=== PATIENT | male | born 1950 | race Hispanic/Latino ===

== ENCOUNTER 2019-02-05 03:58 | Inpatient (IN) | payer MEDICARE ==
[2019-02-05] MEDS: Sodium Chloride 0.9% 1,000 ML IV SCH ×2 (04:40→18:20)
--- NOTE | 2019-02-05 05:13 | ED PDOC ---
Arrival/HPI - General Chief Complaint: Weakness/Neurological Deficit Time Seen by Provider: 02/05/19 04:04 Historian: Patient - History of Present Illness Narrative History of Present Illness (Text): 02/05/19 05:08 A 68 year old male, whose past medical history includes diabetes (compliant with medications), presents to the emergency department complaining of possible stroke. Patient reports noticing right facial droop, slurred speech, right arm weakness, and right leg weakness yesterday morning, to which he did not seek immediate medical attention. States this morning while he was trying to ambulate to the bathroom, and resulted in falling to the floor due to the right leg weakness. Patient denies any LOC, head trauma, vision changes, chest pain, shortness of breath, palpitations, abdominal pain, nausea, vomiting, diarrhea, dysuria, dizziness, extremity numbness, or any other complaints at this time. Denies any history of cardiac issues, smoking, hypertension or hyperlipidemia. PMD: Dr. Rollins Past Medical History - Provider Review Nursing Documentation Reviewed: Yes Primary Care Provider: Camila Roy R - Infectious Disease Hx of Infectious Diseases: None - Cardiac Hx Cardiac Disorders: No - Pulmonary Hx Respiratory Disorders: No - Neurological Hx Neurological Disorder: No - HEENT Hx HEENT Disorder: No - Renal Hx Renal Disorder: No - Endocrine/Metabolic Hx Endocrine Disorders: Yes Hx Diabetes Mellitus Type 2: Yes - Hematological/Oncological Hx Blood Disorders: No - Integumentary Hx Dermatological Disorder: No - Musculoskeletal/Rheumatological Hx Musculoskeletal Disorders: Yes Hx Osteoarthritis: Yes - Gastrointestinal Hx Gastrointestinal Disorders: No - Genitourinary/Gynecological Hx Genitourinary Disorders: No - Psychiatric Hx Psychophysiologic Disorder: No Hx Substance Use: No - Surgical History Other/Comment: lt hand sx - Anesthesia Hx Anesthesia: Yes Hx Anesthesia Reactions: No Hx Malignant Hyperthermia: No Family/Social History - Physician Review Nursing Documentation Reviewed: Yes Family/Social History: No Known Family HX Smoking Status: Never Smoked Hx Alcohol Use: No Hx Substance Use: No Allergies/Home Meds Allergies/Adverse Reactions: Allergies No Known Allergies Allergy (Verified 02/05/19 04:06) Home Medications: Home Meds Medication Instructions Recorded Confirmed Insulin Detemir [Levemir] 45 unit SC HS 02/05/19 02/05/19 MetFORMIN [glucoPHAGE] 1,000 mg PO BID 02/05/19 02/05/19 Review of Systems - Physician Review All systems were reviewed & negative as marked: Yes - Review of Systems Constitutional: absent: Other (no head trauma) Eyes: absent: Vision Changes Respiratory: absent: SOB Cardiovascular: absent: Chest Pain, Palpitations Gastrointestinal: absent: Abdominal Pain, Diarrhea, Nausea, Vomiting Neurological: Gait Changes (right leg weakness), Speech Changes (slurred speech), Facial Droop (right-side), Other (right arm weakness; no LOC and no extremity numbness). absent: Dizziness Physical Exam Vital Signs Reviewed: Yes Vital Signs Temp Pulse Resp BP Pulse Ox 02/05/19 05:00 111 H 18 190/102 H 96 02/05/19 04:42 110 H 16 195/85 H 94 L 02/05/19 04:15 98.0 F 116 H 16 197/110 H 94 L Temperature: Afebrile Blood Pressure: Hypertensive Pulse: Regular Respiratory Rate: Normal Appearance: Positive for: Well-Appearing, Non-Toxic, Comfortable Pain Distress: None Mental Status: Positive for: Alert and Oriented X 3 Finger Stick Blood Glucose: 221 - Systems Exam Head: Present: Atraumatic, Normocephalic Pupils: Present: PERRL Extroacular Muscles: Present: EOMI Conjunctiva: Present: Normal Mouth: Present: Moist Mucous Membranes, Other (no tongue deviation) Neck: Present: Normal Range of Motion Respiratory/Chest: Present: Clear to Auscultation, Good Air Exchange. No: Respiratory Distress, Accessory Muscle Use Cardiovascular: Present: Regular Rate and Rhythm, Normal S1, S2. No: Murmurs Abdomen: No: Tenderness, Distention, Peritoneal Signs Back: Present: Normal Inspection Upper Extremity: Present: Normal Inspection. No: Cyanosis, Edema Lower Extremity: Present: Normal Inspection. No: Edema Neurological: Present: GCS=15, CN II-XII Intact, Other (right facial droop, specifically to corner of mouth). No: Speech Normal (slurred speech) Skin: Present: Warm, Dry, Normal Color. No: Rashes Psychiatric: Present: Alert, Oriented x 3, Normal Insight, Normal Concentration Medical Decision Making ED Course and Treatment: 02/05/19 05:21 Impression: 68 year old male with possible stroke. Plan: -- EKG -- Head CT -- Chest X-ray -- IV Fluids -- Reassess and disposition Prior Visits: Notes and results from previous visits were reviewed. Progress Notes: Patient seen and examined. Stroke alert called (not code stroke as patient is almost 24 hours from symptom onset). Labs drawn and sent. Patient to CT. 02/05/2019 04:[address] IMPRESSION: 1. Age-appropriate cerebellar and cerebral atrophy. 2. Mild chronic microvascular disease. 3. No evidence of acute intracranial pathology. Dictator: Micky Angulo MD Case discussed with Dr. George store loss prevention manager for neurology. Advised ASA, MRI brain, permissive hypertension to around 160 systolic. Agrees that patient is out of window for acute intervention. 160mg ASA given WA (patient took two baby ASA at home prior to arrival). Case discussed with Dr. Grant who accepts patient to her service. - Critical Care Critical Care Minutes: 30 minutes - RAD Interpretation Narrative RAD Interpretations (Text): CXR: no acute disease noted Radiology Orders: 02/05/19 04:14 HEAD W/O CONTRAST [CT] Stat CHEST ONE VIEW [RAD] Stat Surface Lay Out Technician: ED Physician - EKG Interpretation EKG Interpretation (Text): 02/05/19 05:44 Sinus tachycardia, rate 104, normal axis, normal intervals, no ST elevation - Medication Orders Current Medication Orders: Sodium Chloride (Sodium Chloride 0.9%) 1,000 mls @ 100 mls/hr IV .Q10H SOFIA Last Admin: 02/05/19 04:40 Dose: 100 mls/hr eMAR Start Stop Document 02/05/19 04:40 KV (Rec: 02/05/19 04:51 [id number] [id number]) Intravenous Solution Start Date 02/05/19 Start Time 04:40 NIHSS Stroke Scale 3 - Date/Time Evaluation Performed Date Performed: 02/05/19 Time Performed: 04:05 When Was NIHSS Performed: Code Stroke (stroke alert) - How Severe is the Stroke Level of Consciousness: 0=Alert LOC to Questions: 0=Both comments correct LOC to commands: 0=Obeys both correctly Best Gaze: 0=Normal Visual: 0=No visual loss Facial: 1=Minor asymmetry Motor Arm - Left: 0=No drift Motor Arm - Right: 2=Falls before 10 sec Motor Leg - Left: 0=No drift Motor Leg - Right: 2=Falls before 5 sec Limb Ataxia: 0=Absent Sensory: 0=Normal Best Language: 0=No aphasia Dysarthia: 1=Mild to moderate slurring Extinction & Inattention (Neglect): 0=Normal, no object Score: 6 - Scribe Statement The provider has reviewed the documentation as recorded by the Merlyn Garner Provider Scribe Attestation: All medical record entries made by the Scribe were at my direction and personally dictated by me. I have reviewed the chart and agree that the record accurately reflects my personal performance of the history, physical exam, medical decision making, and the department course for this patient. I have also personally directed, reviewed, and agree with the discharge instructions and disposition. Disposition/Present on Arrival - Present on Arrival Any Indicators Present on Arrival: No History of DVT/PE: No History of Uncontrolled Diabetes: No Urinary Catheter: No History of Decub. Ulcer: No History Surgical Site Infection Following: None - Disposition Have Diagnosis and Disposition been Completed?: Yes Diagnosis: CVA (cerebral vascular accident) Disposition: HOSPITALIZED Disposition Time: 05:43 Patient Problems: Current Active Problems Problem Status Onset CVA (cerebral vascular accident) Acute Condition: FAIR
[2019-02-05 05:43] LABS: BASO # 0.03 K/mm3 (0.0-2.0); BASO % 0.2 % (0.0-3.0); EOS # 0.1 (0.0-0.7); EOS % 0.6 % (1.5-5.0); HEMOGLOBIN 13.4 g/dL (14.0-18.0); LYMPH # 2.1 (1.2-3.4); LYMPH % 16.7 % (22.0-35.0); MEAN CELL VOLUME 86.1 fl (80.0-105.0); MEAN CORPUSCULAR HEMOGLOBIN 29.6 pg (25.0-35.0); MEAN CORPUSCULAR HGB CONC 34.4 g/dl (31.0-37.0); MEAN PLATELET VOLUME 9.9 fl (7.0-11.0); MONO # 0.7 (0.1-0.6); MONO % 5.3 % (1.0-6.0); RBC 4.53 10^6/uL (3.5-6.1); RED CELL DISTRIBUTION WIDTH 13.7 % (11.5-14.5); WHITE BLOOD COUNT 12.5 10^3/uL (4.5-11.0)
[2019-02-05] MEDS ORDERED: Labetalol 5 mg/ml Inj 20ML IV STA (05:44)
[2019-02-05 05:48] LABS: INR 1.02; PARTIAL THROMBOPLASTIN TIME 56.8 Seconds (26.9-38.3); PROTHROMBIN TIME 11.5 SECONDS (9.4-12.5)
[2019-02-05 05:52] LABS: ALB/GLOB RATIO 1.3 (1.1-1.8); ALBUMIN 4.2 g/dL (3.0-4.8); ALT/SGPT 13 U/L (7-56); AST/SGOT 22 U/L (17-59); BLOOD UREA NITROGEN 15 mg/dL (7-21); CALCIUM 9.5 mg/dL (8.4-10.5); GFR NON-AFRICAN AMERICAN > 60
[2019-02-05 06:03] LABS: TROPONIN I 0.04 ng/mL
--- NOTE | 2019-02-05 07:55 | CT ---
Date of service: 02/05/2019 PROCEDURE: CT HEAD WITHOUT CONTRAST. HISTORY: cva COMPARISON: None available. TECHNIQUE: Axial computed tomography images were obtained through the head/brain without intravenous contrast. Radiation dose: Total exam DLP = 888.7 mGy-cm. This CT exam was performed using one or more of the following dose reduction techniques: Automated exposure control, adjustment of the mA and/or kV according to patient size, and/or use of iterative reconstruction technique. FINDINGS: HEMORRHAGE: No intracranial hemorrhage. BRAIN: No mass effect or edema. No atrophy or chronic microvascular ischemic changes. VENTRICLES: Unremarkable. No hydrocephalus. CALVARIUM: Unremarkable. PARANASAL SINUSES: Unremarkable as visualized. No significant inflammatory changes. MASTOID AIR CELLS: Unremarkable as visualized. No inflammatory changes. OTHER FINDINGS: The report concurs with the preliminary [facility] report IMPRESSION: No acute intracranial findings
--- NOTE | 2019-02-05 08:39 | RAD ---
Date of service: 02/05/2019 PROCEDURE: CHEST RADIOGRAPH, 1 VIEW HISTORY: Code Stroke COMPARISON: None available. FINDINGS: LUNGS: Clear. PLEURA: No pneumothorax or pleural fluid seen. CARDIOVASCULAR: No aortic atherosclerotic calcification present. Normal. OSSEOUS STRUCTURES: No significant abnormalities. VISUALIZED UPPER ABDOMEN: Normal. OTHER FINDINGS: None. IMPRESSION: No active disease.
--- NOTE | 2019-02-05 10:46 | CARD ---
APPROVED REPORT Date of service: 02/05/2019 EKG Measurement Heart [id number] <Conclusion> Sinus tachycardia Otherwise normal ECG
[2019-02-05] MEDS ORDERED: Insulin Lispro (humaLOG) MEDIUM Coverage SC SCH (11:30)
[2019-02-05 13:36] VITALS: BMI 28.3
[2019-02-05] MEDS ORDERED: Pneumococcal 23-Valent Vaccine IM ONE (13:37)
--- NOTE | 2019-02-05 15:25 | CP.PCM.CON ---
History of Present Illness - History of Present Illness History of Present Illness: Neurology consult dictated Mr. Hernandez is a gentleman who appears to have had a Left MCA division 1 stroke, not TPA candidate, now improving. Tpa was not given as he was out of the window. He is pending MRI brain, and is now on aspirin, with permissive hypertension. A/P: 1. MRI Brain without dereck 2. ECHO 3. aspirin and plavix 4. PT ST OT 5. Lipid profile 6. CTA head and neck 7. Neuro checks q shift, Thank you Dr. huffman Past Patient History - Infectious Disease Hx of Infectious Diseases: None - Past Social History Smoking Status: Never Smoked - CARDIAC Hx Cardiac Disorders: No - PULMONARY Hx Respiratory Disorders: No - NEUROLOGICAL Hx Neurological Disorder: Yes Other/Comment: started saturday02/03/19 c/o weakness, slurred speech, r facial droop, r arm and r leg weakness, fell in bathroom due to right side weakness - HEENT Hx HEENT Problems: Yes (bifocals) Hx Cataracts: Yes (r eye cataract dx 06/2018 no sx yet) - RENAL Hx Chronic Kidney Disease: No - ENDOCRINE/METABOLIC Hx Diabetes Mellitus Type 2: Yes - HEMATOLOGICAL/ONCOLOGICAL Hx Blood Disorders: Yes Hx Cancer: Yes (skin ca basal cell removed from nose) - INTEGUMENTARY Hx Dermatological Problems: No - MUSCULOSKELETAL/RHEUMATOLOGICAL Hx Arthritis: Yes - GASTROINTESTINAL Hx Gastrointestinal Disorders: No - GENITOURINARY/GYNECOLOGICAL Hx Genitourinary Disorders: No - PSYCHIATRIC Hx Substance Use: No - SURGICAL HISTORY Hx Surgeries: Yes Other/Comment: lt hand sx to correct curling of 5th finger left hand about 3 yrs ago - ANESTHESIA Hx Anesthesia: Yes Hx Anesthesia Reactions: No Hx Malignant Hyperthermia: No Meds Allergies/Adverse Reactions: Allergies Allergy/AdvReac Type Severity Reaction Status Date / Time No Known Allergies Allergy Verified 02/05/19 04:06 - Medications Medications: Current Medications Amlodipine Besylate (Norvasc) 10 mg PO DAILY SOFIA Last Admin: 02/05/19 14:02 Dose: 10 mg Sodium Chloride (Sodium Chloride 0.9%) 1,000 mls @ 100 mls/hr IV .Q10H SOFIA Last Admin: 02/05/19 04:40 Dose: 100 mls/hr Insulin Human Lispro (Humalog Med) 0 units SC ACHS SOFIA; Protocol Last Admin: 02/05/19 13:48 Dose: Not Given Results - Vital Signs Recent Vital Signs: Last Vital Signs Temp 98.1 F 02/05/19 12:00 Pulse 93 H 02/05/19 13:15 Resp 18 02/05/19 13:15 BP 180/85 H 02/05/19 14:02 Pulse Ox 96 02/05/19 09:30 - Labs Result Diagrams: 02/05/19 04:42 02/05/19 04:42 Labs: Laboratory Results - last 24 hr 02/05/19 02/05/19 02/05/19 04:07 04:42 04:42 WBC 12.5 H RBC 4.53 Hgb 13.4 L Hct 39.0 L MCV 86.1 MCH 29.6 MCHC 34.4 RDW 13.7 Plt Count 297 MPV 9.9 Neut % (Auto) 77.2 H Lymph % (Auto) 16.7 L [place] % (Auto) 5.3 Eos % (Auto) 0.6 L Baso % (Auto) 0.2 Lymph # (Auto) 2.1 [place] # (Auto) 0.7 H Eos # (Auto) 0.1 Baso # (Auto) 0.03 Absolute Neuts (auto) 9.68 H PT 11.5 INR 1.02 APTT 56.8 H Sodium Potassium Chloride Carbon Dioxide Anion Gap BUN Creatinine Est GFR ( Amer) Est GFR (Non-Af Amer) POC Glucose (mg/dL) 221 H Random Glucose Calcium Total Bilirubin AST ALT Alkaline Phosphatase Troponin I Total Protein Albumin Globulin Albumin/Globulin Ratio 02/05/19 02/05/19 04:42 07:41 WBC RBC Hgb Hct MCV MCH MCHC RDW Plt Count MPV Neut % (Auto) Lymph % (Auto) [place] % (Auto) Eos % (Auto) Baso % (Auto) Lymph # (Auto) [place] # (Auto) Eos # (Auto) Baso # (Auto) Absolute Neuts (auto) PT INR APTT Sodium 140 Potassium 3.6 Chloride 104 Carbon Dioxide 25 Anion Gap 15 BUN 15 Creatinine 0.6 L Est GFR ( Amer) > 60 Est GFR (Non-Af Amer) > 60 POC Glucose (mg/dL) 252 H Random Glucose 198 H Calcium 9.5 Total Bilirubin 0.6 AST 22 ALT 13 Alkaline Phosphatase 90 Troponin I 0.04 Total Protein 7.5 Albumin 4.2 Globulin 3.3 Albumin/Globulin Ratio 1.3
--- NOTE | 2019-02-05 15:50 | CP.PCM.HP ---
History of Present Illness - History of Present Illness History of Present Illness: This is a 68 year old male with history of hypertension, diabetes, hyperlipidemia and osteoarthritis who presented to the Emergency Room with right sided weakness, slurred speech and facial droop. Patient apparently had had the symptoms for about a day prior to coming to the Emergency Room. Today, the patient is feeling better with some improvement in the weakness. His speech is slurred. He denies chest pain, shortness of breath, nausea, vomiting and diaphoresis. Present on Admission - Present on Admission Any Indicators Present on Admission: No History of DVT/PE: No History of Uncontrolled Diabetes: No Urinary Catheter: No Decubitus Ulcer Present: No Review of Systems - Constitutional Constitutional: absent: Chills, Fever - Cardiovascular Cardiovascular: absent: Chest Pain, Diaphoresis, Dyspnea - Respiratory Respiratory: absent: Cough, Dyspnea, Hemoptysis - Gastrointestinal Gastrointestinal: absent: Abdominal Pain, Nausea, Vomiting - Neurological Neurological: As Per HPI Past Patient History - Infectious Disease Hx of Infectious Diseases: None - Past Social History Smoking Status: Never Smoked - CARDIAC Hx Cardiac Disorders: Yes Hx Hypercholesterolemia: Yes - PULMONARY Hx Respiratory Disorders: No - NEUROLOGICAL Hx Neurological Disorder: Yes Other/Comment: started saturday02/03/19 c/o weakness, slurred speech, r facial droop, r arm and r leg weakness, fell in bathroom due to right side weakness - HEENT Hx HEENT Problems: Yes (bifocals) Hx Cataracts: Yes (r eye cataract dx 06/2018 no sx yet) - RENAL Hx Chronic Kidney Disease: No - ENDOCRINE/METABOLIC Hx Diabetes Mellitus Type 2: Yes - HEMATOLOGICAL/ONCOLOGICAL Hx Blood Disorders: Yes Hx Cancer: Yes (skin ca basal cell removed from nose) - INTEGUMENTARY Hx Dermatological Problems: No - MUSCULOSKELETAL/RHEUMATOLOGICAL Hx Arthritis: Yes - GASTROINTESTINAL Hx Gastrointestinal Disorders: No - GENITOURINARY/GYNECOLOGICAL Hx Genitourinary Disorders: No - PSYCHIATRIC Hx Substance Use: No - SURGICAL HISTORY Hx Surgeries: Yes Other/Comment: lt hand sx to correct curling of 5th finger left hand about 3 yrs ago - ANESTHESIA Hx Anesthesia: Yes Hx Anesthesia Reactions: No Hx Malignant Hyperthermia: No Meds Allergies/Adverse Reactions: Allergies Allergy/AdvReac Type Severity Reaction Status Date / Time No Known Allergies Allergy Verified 02/05/19 04:06 Physical Exam - Constitutional Appears: No Acute Distress - Head Exam Head Exam: ATRAUMATIC, NORMOCEPHALIC - Respiratory Exam Respiratory Exam: Clear to Auscultation Bilateral, NORMAL BREATHING PATTERN - Cardiovascular Exam Cardiovascular Exam: REGULAR RHYTHM, +S1, +S2 - GI/Abdominal Exam GI & Abdominal Exam: Normal Bowel Sounds, Soft. absent: Tenderness - Extremities Exam Extremities exam: Positive for: normal inspection - Neurological Exam Neurological exam: Alert, Oriented x3 Additional comments: slurred speech, right facial droop Results - Vital Signs Recent Vital Signs: Last Vital Signs Temp 98.1 F 02/05/19 12:00 Pulse 93 H 02/05/19 13:15 Resp 18 02/05/19 13:15 BP 180/85 H 02/05/19 14:02 Pulse Ox 96 02/05/19 09:30 - Labs Result Diagrams: 02/05/19 04:42 02/05/19 04:42 Labs: Laboratory Results - last 24 hr 02/05/19 02/05/19 02/05/19 04:07 04:42 04:42 WBC 12.5 H RBC 4.53 Hgb 13.4 L Hct 39.0 L MCV 86.1 MCH 29.6 MCHC 34.4 RDW 13.7 Plt Count 297 MPV 9.9 Neut % (Auto) 77.2 H Lymph % (Auto) 16.7 L [place] % (Auto) 5.3 Eos % (Auto) 0.6 L Baso % (Auto) 0.2 Lymph # (Auto) 2.1 [place] # (Auto) 0.7 H Eos # (Auto) 0.1 Baso # (Auto) 0.03 Absolute Neuts (auto) 9.68 H PT 11.5 INR 1.02 APTT 56.8 H Sodium Potassium Chloride Carbon Dioxide Anion Gap BUN Creatinine Est GFR ( Amer) Est GFR (Non-Af Amer) POC Glucose (mg/dL) 221 H Random Glucose Calcium Total Bilirubin AST ALT Alkaline Phosphatase Troponin I Total Protein Albumin Globulin Albumin/Globulin Ratio 02/05/19 02/05/19 04:42 07:41 WBC RBC Hgb Hct MCV MCH MCHC RDW Plt Count MPV Neut % (Auto) Lymph % (Auto) [place] % (Auto) Eos % (Auto) Baso % (Auto) Lymph # (Auto) [place] # (Auto) Eos # (Auto) Baso # (Auto) Absolute Neuts (auto) PT INR APTT Sodium 140 Potassium 3.6 Chloride 104 Carbon Dioxide 25 Anion Gap 15 BUN 15 Creatinine 0.6 L Est GFR ( Amer) > 60 Est GFR (Non-Af Amer) > 60 POC Glucose (mg/dL) 252 H Random Glucose 198 H Calcium 9.5 Total Bilirubin 0.6 AST 22 ALT 13 Alkaline Phosphatase 90 Troponin I 0.04 Total Protein 7.5 Albumin 4.2 Globulin 3.3 Albumin/Globulin Ratio 1.3 Assessment & Plan - Assessment and Plan (Free Text) Assessment: TIA r/o CVA Leukocytosis Diabetes mellitus HTN HLP Arthritis Plan: Patient presented with right facial droop, right sided weakness and slurred speech for over [address] Head negative for acute abnormalities. MRI Brain and carotid doppler are pending. Patient has passed swallowing evaluation. Will start 2g sodium, diabetic diet. Will order speech therapy for slurred speech. Cardiology and Neurology consultations will be ordered. continue Norvasc and Losartan will be given in place of Irbesartan which is not available in the hospital, for hypertension. Lipitor for hyperlipidemia. We will continue Levemir and start accuchecks with sliding scale coverage. We will also order urinalysis and culture as white count is elevated.
[2019-02-05] MEDS ORDERED: Dextrose 50% SYRINGE Inj (50 ml) IV PRN (15:52)
--- NOTE | 2019-02-05 16:49 | MRI ---
Date of service: 02/05/2019 PROCEDURE: MRI BRAIN WITHOUT CONTRAST HISTORY: stroke COMPARISON: None available. TECHNIQUE: Multiplanar, multisequence MR images of the brain were obtained without intravenous contrast enhancement. FINDINGS: HEMORRHAGE: None DWI: There is an area of restricted diffusion in the left side of the becca measuring 6 x 11 mm consistent with an acute pontine infarct. BRAIN PARENCHYMA: No mass effect or edema. No atrophy or chronic microvascular ischemic changes. VENTRICLES: Unremarkable. No hydrocephalus. CRANIUM: Unremarkable. ORBITS: Grossly unremarkable. PARANASAL SINUSES/MASTOIDS: Clear VASCULAR SYSTEM: Skull base flow voids intact. OTHER FINDINGS: Dr. George's service was called at 4:40 p.m. 02/05/2019 IMPRESSION: There is an area of restricted diffusion in the left side of the becca measuring 6 x 11 mm consistent with an acute pontine infarct.
[2019-02-05] MEDS: Insulin Reg-LOW-Coverage SC SCH ×2 (18:07→21:56)
[2019-02-05 18:57] LABS: URINE BILIRUBIN NEGATIVE (NEGATIVE); URINE BLOOD TRACE-INTACT (NEGATIVE); URINE GLUCOSE (UA) >=1000 mg/dL (NEGATIVE); URINE LEUKOCYTE ESTERASE NEGATIVE Leu/uL (NEGATIVE); URINE PROTEIN 100 mg/dL (<30 mg/dL); URINE UROBILINOGEN 0.2 E.U./dL (<1 E.U./dL)
[2019-02-05 18:59] LABS: URINE APPEARANCE CLEAR (CLEAR); URINE COLOR YELLOW (YELLOW)
[2019-02-05] MEDS: Insulin Detemir 100 units/ml Vial (Levemir) SC SCH (21:55)
--- NOTE | 2019-02-06 01:01 | CON ---
DATE: 02/05/2019 Neurology consult called by ___FRANCOISE__ emergency room physician. HISTORY OF PRESENT ILLNESS: A 68-year-old male with a past medical history that includes diabetes presented to the emergency room yesterday 04.00 a.m. in the morning after noticing right facial droop, slurred speech, right arm weakness and right leg weakness on the morning of 02/04/2019. The patient went about his day and did not think anything of these symptoms and fell sleep, when he woke up in the morning he had a fall and had worsening right leg weakness. The patient was deemed not be a tPA candidate because of a sudden onset of symptoms and he has the window. Today on examination, the patient is improving. PAST MEDICAL HISTORY: Seems to be diabetes. No hypertension. No thyroid disease. SURGICAL HISTORY: No surgeries. SOCIAL HISTORY: No tobacco. No alcohol. The patient lives alone. ALLERGIES: NO KNOWN DRUG ALLERGIES. PHYSICAL EXAMINATION NEUROLOGIC: The patient was alert and oriented x3. He had a right-sided beating nystagmus of 30 degrees. Speech is fluent. He can name and repeat. EOMI. Cranial nerves II through XII normal. Right-sided facial droop. Tongue was deviated to the right. Left arm was 5/5. Left strength was 5/5. Right arm was 4/5. He could it hold against gravity but there was right-sided drift, it fell to the bed after 10 seconds. Right leg was 4/5, it also fell to the bed after 10 seconds. Sensory decreased fine touch and pin on the right face, arm, and leg when compared to the left. Reflexes 2+ in upper limb and lower limb bilaterally. Toes were downgoing. There was no clonus. Gait was not tested, the patient refused. MEDICATIONS AT HOME: The patient is on metformin and 45 units of insulin. LABORATORY DATA: White count 12.5, hemoglobin 13.4, hematocrit 39, neutrophils 77, lymphocytes 16. Coagulation parameters were normal, PTT was 36.8. Chemistry showed sodium 140, potassium 3.6, chloride 104, bicarb 25, BUN 15, creatinine 0.6, glucose was 143, initially it was 252. AST, ALT were within normal limits. CAT scan of the head was done, which was within normal limits. Carotid ultrasound was done and results are still pending. Brain MRI was done and shows that the patient has an area of restricted effusion on the left side of the becca measuring [address] of the head and neck is pending. IMPRESSION: This is a 68-year-old male with a new stroke of approximately 16, who had an acute stroke in the left becca, which is most likely lacunar in nature. He would not be a tissue plasminogen activator candidate due to being out of the window. At this point we will approach stroke workup and start him on aspirin and Plavix. PLAN: The patient will also obtain; 1. CTA of the head and neck plain. 2. Telemetry. 3. PT, SGOT. 4. Lipid profile. 5. Echocardiogram. Thank you for this interesting consult. Annita George MD [facility]
--- NOTE | 2019-02-06 01:15 | CON ---
DATE: 02/05/2019 REASON FOR CONSULTATION AND FOLLOWUP: Cardiac evaluation, admitted with TIA type of symptoms. BRIEF CLINICAL HISTORY: This is a 68-year-old white male with past medical history significant for diabetes, hypertension, hyperlipidemia, and osteoarthritis who came to the emergency room after having right-sided weakness. The patient states that he woke up at 4 a.m. in the morning, go to the bathroom, he felt right side upper extremity and lower extremity weakness and facial droop and speech slurred and fell on the way to the bathroom, so brought here. is at the bedside. Denies any prior episode of these symptoms. Denies any chest pain. Denies any diaphoresis. Denies any shortness of breath. PAST MEDICAL HISTORY: Significant for hypertension, diabetes, hyperlipidemia, and osteoarthritis. SOCIAL HISTORY: Denies any smoking. Denies any history of alcohol abuse. CURRENT MEDICATIONS: The patient at home was taking amlodipine 10 mg daily, Avapro 300 mg daily, Actos 30 mg daily, Crestor 40 mg daily, metformin 1000 mg twice a day, insulin, and Levemir 45 units subcutaneously daily. ALLERGIES: NO KNOWN DRUG ALLERGIES. REVIEW OF SYSTEMS: As per HPI. PHYSICAL EXAMINATION: GENERAL: Height of the patient 5 feet 8 inches, weight of the patient 186 pounds, and body mass index 28.3 kg/m2. VITAL SIGNS: Temperature afebrile, heart rate 88, and blood pressure 180/85. HEENT: PERRLA. Extraocular muscles intact. NECK: Supple. No carotid bruits or thyromegaly. CHEST: Clear to auscultation. HEART: S1 and S2 regular. ABDOMEN: Soft. EXTREMITIES: Clubbing and cyanosis negative. LABORATORY DATA: Blood workup; WBC 12.5, hemoglobin 13.5, hematocrit 39, and platelet count 297. Chemistry shows sodium 140, potassium 3.6, chloride 104, carbon dioxide 27, anion gap of 15, BUN 15, and creatinine 0.6. Troponin 0.04. EKG shows normal sinus tachycardia with no acute ST-T changes noted. The patient had CT scan on arrival that shows no acute findings. IMPRESSION: The patient is a 68-year-old male with past medical history of diabetes, hypertension, hyperlipidemia, osteoarthritis, admitted with right-sided weakness, transient ishemic attack type of symptoms, cerebrovascular accident, and speech slurred. RECOMMENDATIONS: The patient still uncontrolled hypertension. We will start antihypertensive medication. If the patient is not n.p.o., we will start back on amlodipine, beta-vivek, and lisinopril. If the patient is n.p.o., we will start IV medications. We will also get lipid profile, TSH, and hemoglobin A1c. We will also get carotid Duplex with echo to assess LV function and rule out PFO. Further recommendation depending upon the hospital course. We will follow with you. Thank you Dr. Roy for providing us the opportunity in taking care of the patient, Nathaniel Hernandez. Zeinab Jett MD
[2019-02-06] MEDS: Sodium Chloride 0.9% 1,000 ML IV SCH ×3 (02:19→17:45)
[2019-02-06 06:55] LABS: BASO # 0.04 K/mm3 (0.0-2.0); BASO % 0.4 % (0.0-3.0); EOS # 0.1 (0.0-0.7); EOS % 1.4 % (1.5-5.0); HEMOGLOBIN 12.2 g/dL (14.0-18.0); LYMPH # 2.9 (1.2-3.4); LYMPH % 31.7 % (22.0-35.0); MEAN CELL VOLUME 86.5 fl (80.0-105.0); MEAN CORPUSCULAR HEMOGLOBIN 29.3 pg (25.0-35.0); MEAN CORPUSCULAR HGB CONC 33.9 g/dl (31.0-37.0); MEAN PLATELET VOLUME 9.8 fl (7.0-11.0); MONO # 0.6 (0.1-0.6); MONO % 6.7 % (1.0-6.0); RBC 4.16 10^6/uL (3.5-6.1); RED CELL DISTRIBUTION WIDTH 13.7 % (11.5-14.5); WHITE BLOOD COUNT 9.2 10^3/uL (4.5-11.0)
[2019-02-06 07:10] LABS: BLOOD UREA NITROGEN 15 mg/dL (7-21); CALCIUM 8.8 mg/dL (8.4-10.5); GFR NON-AFRICAN AMERICAN > 60; HDL CHOLESTEROL 30 mg/dL (29-60)
[2019-02-06 07:21] LABS: LDL CHOLESTEROL 162 mg/dL (0-129)
[2019-02-06] MEDS: Insulin Reg-LOW-Coverage SC SCH ×4 (08:01→22:02)
--- NOTE | 2019-02-06 08:28 | CON ---
DATE: 02/05/2019 HISTORY OF PRESENT ILLNESS: This is a 68-year-old male admitted to the hospital with right-sided weakness. Patient was TPA candidate, called to evaluate the patient. Past medical history of high blood pressure. The patient had MRI was done which showed pontine acute infarct with right-sided weakness. Swallowing eval was called and patient passed the swallowing eval. PHYSICAL EXAMINATION: HEENT: Normocephalic and atraumatic. NECK: Supple. NEUROLOGIC: Awake and oriented to self and place. Cranial nerves II through XII were tested. Pupils reactive. EOM intact. Visual saha full. No facial asymmetry. Tongue midline. Motor examination, right-sided weakness, 4/5 and slight dysarthria. Cerebellar gait was deferred. IMPRESSION: Brain infarct with right-sided weakness. PLAN: Continue present management and swallowing evaluation. Patient is on aspirin and Plavix. We will continue present management. We will follow up. Wilber Sibley MD
--- NOTE | 2019-02-06 12:06 | PN ---
DATE: 02/06/2019 REASON FOR CONSULTATION AND FOLLOWUP: Cardiac evaluation, admitted with TIA type of symptom. SUBJECTIVE: The patient denies any chest pain, shortness of breath or any palpitation. OBJECTIVE GENERAL: Not in apparent distress. Claims that improved significant power in right upper extremity. VITAL SIGNS: Temperature afebrile, heart rate 76, blood pressure 154/73. HEENT: PERRLA. Extraocular muscles intact. NECK: Supple. No carotid bruits or thyromegaly. CHEST: Clear to auscultation. HEART: S1 and S2 regular. ABDOMEN: Soft. EXTREMITIES: Clubbing and cyanosis, negative. LABORATORY DATA: Blood workup as follows: WBC 9, hemoglobin 12.2, hematocrit 36, platelet count 265. Chemistry shows sodium 141, potassium 3.6, chloride 108, carbon dioxide 27, anion gap of 9, BUN 19, creatinine 0.6. TSH 0.67, HDL 30, LDL 162, triglycerides 216, total cholesterol 266. IMPRESSION: This is a 68-year-old male with past medical history significant for diabetes, hypertension, hyperlipidemia, osteoarthritis, admitted with right upper extremity weakness. MRI of the brain shows area of restricted effusion in the left side of the becca, consideration is acute pontine infarct. RECOMMENDATION: Continue Losartan. Continue baby aspirin. Echo, rule out PFO. control of blood pressure. Further recommendation as per Neurology. We will follow with you. Thank you Dr. Roy for providing us the opportunity in taking care of your patient, Nathaniel Hernandez. Zeinab Jett MD
--- NOTE | 2019-02-06 12:33 | PN ---
DATE: 02/06/2019 SUBJECTIVE: The patient is a 68-year-old white male. He was admitted yesterday with right hemiparetic stroke. The patient was treated in the emergency room, admitted to telemetry. The patient has past history of hypertension, diabetes mellitus, and hyperlipidemia. The patient has no past surgical history, excepting the medical history. THE PATIENT HAS NO ALLERGY TO ANY DRUGS. PHYSICAL EXAMINATION: GENERAL: This morning, the patient is conscious, rationale, oriented. He is able to move all four limbs, but he complains of mild weakness on the right side. VITAL SIGNS: The patient's pulse is 76, blood pressure 158/78, respirations are 18 per minute. The patient's O2 sat is 97% on room air. HEENT: Head is normocephalic. On examination, there is no evidence of any trauma. NECK: Thyroid is not enlarged. JVP is flat. Carotid pulses are present. The patient has by ultrasound study left carotid artery disease. LUNGS: Trachea is central. Breath sounds are vesicular, no adventitious sounds. HEART: Normal sinus rhythm. S1 and S2 present. No murmurs. ABDOMEN: Soft. Liver and spleen not palpable. CENTRAL NERVOUS SYSTEM: The patient has mild right hemiparesis. The patient's speech was slurred yesterday, but is recovering at this point. The patient has had neurological evaluation and cardiological evaluation. The patient will be followed up. The patient requires evaluation for the carotid artery disease. LABORATORY DATA: The patient's chest x-ray is clear. EKG report is sinus tachycardia; otherwise, there are no changes. The patient's MRI of the brain shows evidence of lesion in the pontine area consistent with maybe a small stroke, less than 1 cm. Re-evaluation of cranial nerves are all intact at this point. The patient does not show any ophthalmoplegia. MEDICATIONS: The patient is on hydralazine 10 mg q.i.d. p.r.n. for systolic pressure greater than 160. The patient is on losartan 100 mg daily. The patient gets aspirin 81 mg daily, insulin coverage for diabetes, Lipitor 80 mg daily, amlodipine 10 mg daily, Plavix 75 mg daily. ASSESSMENT AND PLAN: The patient is on intravenous fluids, which is discontinued. The patient is able to tolerate food. We will put the patient on heart-healthy diet, 2 g sodium. His prognosis is guarded. Overall condition is improving. Case is discussed with the patient and he is quite aware of the diagnosis and treatment. Jas Roy MD [facility]
--- NOTE | 2019-02-06 13:57 | CP.PCM.APN ---
Subjective - Date & Time of Evaluation Date of Evaluation: 02/06/19 Time of Evaluation: 10:30 - Subjective Subjective: pt off floor to ECHO with bubble study Review of Systems - Constitutional Constitutional: As Per HPI Objective - Vital Signs/Intake and Output Vital Signs (last 24 hours): Temp Pulse Resp BP Pulse Ox 98.6 F 90 19 170/88 H 97 02/06/19 12:00 02/06/19 13:07 02/06/19 12:00 02/06/19 13:07 02/06/19 00:01 Intake and Output: 02/06/19 02/06/19 06:59 18:59 Intake Total 2720 Output Total 2210 Balance 510 - Medications Medications: Current Medications Amlodipine Besylate (Norvasc) 10 mg PO DAILY [facility] Last Admin: 02/06/19 10:45 Dose: 10 mg Aspirin (Ecotrin) 81 mg PO DAILY [facility] Last Admin: 02/06/19 10:46 Dose: 81 mg Atorvastatin Calcium (Lipitor) 80 mg PO DIN [facility] Last Admin: 02/05/19 18:17 Dose: 80 mg Clopidogrel Bisulfate (Plavix) 75 mg PO DAILY [facility] Last Admin: 02/06/19 10:45 Dose: 75 mg Dextrose (Dextrose 50% Inj) 0 ml IV STAT PRN; Protocol PRN Reason: Hypoglycemia Protocol Hydralazine HCl (Apresoline) 10 mg PO QID PRN PRN Reason: For SBP >160 Last Admin: 02/06/19 13:07 Dose: 10 mg Sodium Chloride (Sodium Chloride 0.9%) 1,000 mls @ 100 mls/hr IV .Q10H [facility] Last Admin: 02/06/19 02:19 Dose: 100 mls/hr Dextrose (Dextrose 5% In Water 1000 Ml) 1,000 mls @ 0 mls/hr IV .Q0M PRN; Protocol PRN Reason: Hypoglycemia Protocol Insulin Detemir (Levemir) 20 unit SC HS [facility] Last Admin: 02/05/19 21:55 Dose: 20 units Insulin Human Regular (Humulin R Low) 0 units SC ACHS [facility]; Protocol Last Admin: 02/06/19 13:10 Dose: 2 u Losartan Potassium (Cozaar) 100 mg PO DAILY [facility] Last Admin: 02/06/19 10:45 Dose: 100 mg - Labs Labs: 02/06/19 06:20 02/06/19 06:20 PT 11.5 SECONDS (9.4-12.5) 02/05/19 04:42 INR 1.02 02/05/19 04:42 APTT 56.8 Seconds (26.9-38.3) H 02/05/19 04:42 - Constitutional Appears: Non-toxic - Eye Exam Eye Exam: Normal appearance - Cardiovascular Exam Cardiovascular Exam: +S1, +S2 - GI/Abdominal Exam GI & Abdominal Exam: Soft, Normal Bowel Sounds - Neurological Exam Neurological Exam: Alert, Awake Additional comments: right sided weakness - Skin Skin Exam: Dry, Intact Assessment and Plan - Assessment and Plan (Free Text) Plan: ITS Impressions Chest X-Ray 02/05/19 04:14 IMPRESSION: No active disease. Head CT 02/05/19 04:14 IMPRESSION: No acute intracranial findings Brain MRI 02/05/19 14:14 IMPRESSION: There is an area of restricted diffusion in the left side of the becca measuring 6 x 11 mm consistent with an acute pontine infarct. A/P 68 yr old with pmh sig for DM, HTN, HLD, OA, who presented with right sided weakness and slurred speech, right facial droop over 24 rhs now admitted with further neuro eval and workup in progress. Pt with MRI showing acute pontie infarct. pt for ECHO with bubble study. Spoke to neuro and will order p.t, o.t , will follow results of neuro workup including carotid results pending. BPCI/TIC - BPCIA/TIC Educated pt/family on BPCIA/CIR/Med to Bed Programs: N/A Flyers given, including [facility] Beneficiary letter: N/A Pt/family verbalized understanding & agreed to program: N/A
--- NOTE | 2019-02-06 16:03 | CARD ---
APPROVED REPORT Date of service: 02/06/2019 EXAM: Two-dimensional and M-mode echocardiogram with Doppler and color Doppler. INDICATION TIA,PFO, BUBBLE STUDY 2D DIMENSIONS Left Atrium (2D)4.2 (1.6-4.0cm)IVSd1.3 (0.7-1.1cm) LVDd4.9 (3.9-5.9cm)PWd1.5 (0.7-1.1cm) LVDs3.6 (2.5-4.0cm)FS (%) 26.6 % LVEF (%)51.6 (>50%) M-Mode DIMENSIONS Aortic Root3.20 (2.2-3.7cm)Aortic Cusp Exc.1.60 (1.5-2.0cm) Aortic Valve AoV Peak Waigtkdi067.0cm/Bong Peak GR.10mmHgLVOT Peak Lrtxnvzn09.8cm/s LVOT VTI20.40cm Mitral Valve MV E Nbvfefbk93.9cm/sMV A Ffuyuwdt007.0cm/sE/A ratio0.9 TDI Lateral E' Peak V7.70cm/sMedial E' Peak V5.36cm/sE/Lateral E'11.4 E/Medial E'16.4 Pulmonary Valve PV Peak Twqcvcnt290.0cm/sPV Peak Grad.5mmHg Tricuspid Valve TR Peak Edlokklr750pl/sRAP UXINNBGV78usEqGZ Peak Gr.20mmHg [id number] LEFT VENTRICLE The left ventricle is normal size. There is mild concentric left ventricular hypertrophy. The left ventricular function is normal.EF-55% There is normal LV segmental wall motion. Transmitral Doppler flow pattern is Grade III-reversible restrictive diastolic dysfunction. No left ventricle thrombus noted on this study. There is no ventricular septal defect visualized. There is no left ventricular aneurysm. There is no mass noted in the left ventricle. RIGHT VENTRICLE The right ventricle is normal size. There is normal right ventricular wall thickness. The right ventricular systolic function is normal. ATRIA The left atrium is mildly dilated. The right atrium size is normal. The interatrial septum is intact with no evidence for an atrial septal defect by color flow and Bubble study. AORTIC VALVE The aortic valve is thickened but opens well. No aortic regurgitation is present. There is no aortic valvular stenosis. There is no aortic valvular vegetation. MITRAL VALVE The mitral valve is thickened but opens well. Mitral regurgitation is trace to mild. There is no mitral valve stenosis. There is no evidence of mitral valve prolapse. TRICUSPID VALVE The tricuspid valve leaflets are thickened , but open well. There is mild tricuspid regurgitation.RVSP-30 mmof Hg. There is no tricuspid valve stenosis. There is no tricuspid valve prolapse or vegetation. PULMONIC VALVE The pulmonary valve is normal in structure. There is trace pulmonic valvular regurgitation. There is no pulmonic valvular stenosis. GREAT VESSELS The aortic root is normal in size. The ascending aorta is normal in size. The pulmonary artery is normal. The IVC is normal in size and collapses >50% with inspiration. PERICARDIAL EFFUSION There is no pleural effusion. There is no pericardial effusion. <Conclusion> The left ventricle is normal size. There is mild concentric left ventricular hypertrophy. The left ventricular function is normal.EF-55% Mitral regurgitation is trace to mild. There is mild tricuspid regurgitation.RVSP-30 mmof Hg. The IVC is normal in size and collapses >50% with inspiration. There is no pericardial effusion. The interatrial septum is intact with no evidence for an atrial septal defect by color flow and Bubble study.
[2019-02-06] MEDS: Insulin Detemir 100 units/ml Vial (Levemir) SC SCH (22:06)
[2019-02-07 03:36] LABS: ALB/GLOB RATIO 1.2 (1.1-1.8); ALBUMIN 3.3 g/dL (3.0-4.8); ALT/SGPT 16 U/L (7-56); AST/SGOT 29 U/L (17-59); BLOOD UREA NITROGEN 17 mg/dL (7-21); CALCIUM 8.9 mg/dL (8.4-10.5); GFR NON-AFRICAN AMERICAN > 60
[2019-02-07 03:42] LABS: TROPONIN I 0.02 ng/mL
--- NOTE | 2019-02-07 04:09 | CP.PCM.PN ---
Subjective - Date & Time of Evaluation Date of Evaluation: 02/07/19 Time of Evaluation: 04:08 - Subjective Subjective: Patient had 11 runs of VTACH. He is asymptomatic. Pertinent medical record was reviewed. This 68 year old male was admitted for right sided weakness,slurred speech and facial droop,TIA/CVA. Has PMH of HTN,DM,HLD,OA. Objective - Vital Signs/Intake and Output Vital Signs (last 24 hours): Temp Pulse Resp BP Pulse Ox 98 F 77 20 142/79 99 02/07/19 02:05 02/07/19 02:05 02/07/19 02:05 02/07/19 02:05 02/07/19 02:05 Intake and Output: 02/06/19 02/07/19 18:59 06:59 Intake Total 1200 1074 Output Total 2140 Balance 1200 -1066 - Medications Medications: Current Medications Amlodipine Besylate (Norvasc) 10 mg PO DAILY [facility] Last Admin: 02/06/19 10:45 Dose: 10 mg Aspirin (Ecotrin) 81 mg PO DAILY [facility] Last Admin: 02/06/19 10:46 Dose: 81 mg Atorvastatin Calcium (Lipitor) 80 mg PO DIN [facility] Last Admin: 02/06/19 17:41 Dose: 80 mg Clopidogrel Bisulfate (Plavix) 75 mg PO DAILY [facility] Last Admin: 02/06/19 10:45 Dose: 75 mg Dextrose (Dextrose 50% Inj) 0 ml IV STAT PRN; Protocol PRN Reason: Hypoglycemia Protocol Hydralazine HCl (Apresoline) 10 mg PO QID PRN PRN Reason: For SBP >160 Last Admin: 02/06/19 13:07 Dose: 10 mg Dextrose (Dextrose 5% In Water 1000 Ml) 1,000 mls @ 0 mls/hr IV .Q0M PRN; Protocol PRN Reason: Hypoglycemia Protocol Insulin Detemir (Levemir) 20 unit SC HS [facility] Last Admin: 02/06/19 22:06 Dose: 20 units Insulin Human Regular (Humulin R Low) 0 units SC ACHS [facility]; Protocol Last Admin: 02/06/19 22:02 Dose: Not Given Losartan Potassium (Cozaar) 100 mg PO DAILY [facility] Last Admin: 02/06/19 10:45 Dose: 100 mg - Labs Labs: 02/06/19 06:20 02/07/19 03:05 PT 11.5 SECONDS (9.4-12.5) 02/05/19 04:42 INR 1.02 02/05/19 04:42 APTT 56.8 Seconds (26.9-38.3) H 02/05/19 04:42 - Constitutional Appears: Well, No Acute Distress - Head Exam Head Exam: ATRAUMATIC, NORMAL INSPECTION, NORMOCEPHALIC - Eye Exam Eye Exam: Normal appearance - ENT Exam ENT Exam: Normal External Ear Exam - Neck Exam Neck Exam: Normal Inspection - Respiratory Exam Respiratory Exam: NORMAL BREATHING PATTERN - Cardiovascular Exam Cardiovascular Exam: absent: JVD - GI/Abdominal Exam GI & Abdominal Exam: absent: Distended - Rectal Exam Rectal Exam: Deferred - Exam Additional comments: Deferred. - Extremities Exam Extremities Exam: Normal Inspection - Back Exam Back Exam: NORMAL INSPECTION - Neurological Exam Additional comments: Resting - Psychiatric Exam Additional comments: Resting - Skin Skin Exam: Normal Color Assessment and Plan - Assessment and Plan (Free Text) Assessment: Non sustained ventricular tachycardia. TIA/CVA HTN DM HLD OA Plan: CMP--K 3.8 Magnesium-->2.1 Phosphorous-->3.9 Troponin--->0.02 EKG--------> No acute changes.NSR. Continue present management.
--- NOTE | 2019-02-07 07:48 | CP.PCM.PN ---
Subjective - Date & Time of Evaluation Date of Evaluation: 02/07/19 Time of Evaluation: 07:25 - Subjective Subjective: Patient is seen this morning. He continues to have facial droop. Right sided weakness is improving. Objective - Vital Signs/Intake and Output Vital Signs (last 24 hours): Temp Pulse Resp BP Pulse Ox 98.4 F 77 20 134/76 96 02/07/19 06:00 02/07/19 06:00 02/07/19 06:00 02/07/19 06:00 02/07/19 06:00 Intake and Output: 02/07/19 02/07/19 06:59 18:59 Intake Total 1854 Output Total 3240 Balance -1386 - Medications Medications: Current Medications Amlodipine Besylate (Norvasc) 10 mg PO DAILY [facility] Last Admin: 02/06/19 10:45 Dose: 10 mg Aspirin (Ecotrin) 81 mg PO DAILY [facility] Last Admin: 02/06/19 10:46 Dose: 81 mg Atorvastatin Calcium (Lipitor) 80 mg PO DIN [facility] Last Admin: 02/06/19 17:41 Dose: 80 mg Clopidogrel Bisulfate (Plavix) 75 mg PO DAILY [facility] Last Admin: 02/06/19 10:45 Dose: 75 mg Dextrose (Dextrose 50% Inj) 0 ml IV STAT PRN; Protocol PRN Reason: Hypoglycemia Protocol Hydralazine HCl (Apresoline) 10 mg PO QID PRN PRN Reason: For SBP >160 Last Admin: 02/06/19 13:07 Dose: 10 mg Dextrose (Dextrose 5% In Water 1000 Ml) 1,000 mls @ 0 mls/hr IV .Q0M PRN; Protocol PRN Reason: Hypoglycemia Protocol Insulin Detemir (Levemir) 20 unit SC HS [facility] Last Admin: 02/06/19 22:06 Dose: 20 units Insulin Human Regular (Humulin R Low) 0 units SC ACHS [facility]; Protocol Last Admin: 02/06/19 22:02 Dose: Not Given Losartan Potassium (Cozaar) 100 mg PO DAILY [facility] Last Admin: 02/06/19 10:45 Dose: 100 mg - Labs Labs: 02/06/19 06:20 02/07/19 03:05 PT 11.5 SECONDS (9.4-12.5) 02/05/19 04:42 INR 1.02 02/05/19 04:42 APTT 56.8 Seconds (26.9-38.3) H 02/05/19 04:42 - Constitutional Appears: No Acute Distress - Head Exam Head Exam: ATRAUMATIC, NORMOCEPHALIC - Respiratory Exam Respiratory Exam: Clear to Ausculation Bilateral, NORMAL BREATHING PATTERN - Cardiovascular Exam Cardiovascular Exam: REGULAR RHYTHM, +S1, +S2 - GI/Abdominal Exam GI & Abdominal Exam: Soft, Normal Bowel Sounds. absent: Tenderness - Neurological Exam Neurological Exam: Alert, Awake, Oriented x3 Neuro motor strength exam: Right Upper Extremity: 4 Assessment and Plan - Assessment and Plan (Free Text) Assessment: Acute pontine infarct HTN Diabetes mellitus HLP Plan: MRI shows acute pontine infarct. Patient continues to have facial droop. Right arm weakness is improving. Right leg weakness is improved. awaiting physical therapy evaluation. continue speech therapy. awaiting reading of carotid doppler. Blood pressure controlled with norvasc and losartan. continue levemir and sliding scale insulin for diabetes.
[2019-02-07] MEDS: Insulin Reg-LOW-Coverage SC SCH ×4 (08:28→22:20)
--- NOTE | 2019-02-07 13:34 | CP.PCM.PN ---
Subjective - Date & Time of Evaluation Date of Evaluation: 02/06/19 Time of Evaluation: 11:00 - Subjective Subjective: Please note that this patient is being followed by Dr. Wilber Sibley. This was discussed at around [address] Sibley and Dr. rodriguez. Thank you DR> [email or web address] Objective - Vital Signs/Intake and Output Vital Signs (last 24 hours): Temp Pulse Resp BP Pulse Ox 98.2 F 79 20 159/73 H 96 02/07/19 12:00 02/07/19 12:00 02/07/19 12:00 02/07/19 12:00 02/07/19 06:00 Intake and Output: 02/07/19 02/07/19 06:59 18:59 Intake Total 1854 Output Total 3240 Balance -1386 - Medications Medications: Current Medications Amlodipine Besylate (Norvasc) 10 mg PO DAILY [facility] Last Admin: 02/07/19 10:45 Dose: 10 mg Aspirin (Ecotrin) 81 mg PO DAILY [facility] Last Admin: 02/07/19 10:45 Dose: 81 mg Atorvastatin Calcium (Lipitor) 80 mg PO DIN [facility] Last Admin: 02/06/19 17:41 Dose: 80 mg Clopidogrel Bisulfate (Plavix) 75 mg PO DAILY [facility] Last Admin: 02/07/19 10:45 Dose: 75 mg Dextrose (Dextrose 50% Inj) 0 ml IV STAT PRN; Protocol PRN Reason: Hypoglycemia Protocol Hydralazine HCl (Apresoline) 10 mg PO QID PRN PRN Reason: For SBP >160 Last Admin: 02/06/19 13:07 Dose: 10 mg Dextrose (Dextrose 5% In Water 1000 Ml) 1,000 mls @ 0 mls/hr IV .Q0M PRN; Protocol PRN Reason: Hypoglycemia Protocol Insulin Detemir (Levemir) 20 unit SC HS [facility] Last Admin: 02/06/19 22:06 Dose: 20 units Insulin Human Regular (Humulin R Low) 0 units SC ACHS [facility]; Protocol Last Admin: 02/07/19 13:30 Dose: 2 u Losartan Potassium (Cozaar) 100 mg PO DAILY [facility] Last Admin: 02/07/19 10:45 Dose: 100 mg - Labs Labs: 02/06/19 06:20 02/07/19 03:05 PT 11.5 SECONDS (9.4-12.5) 02/05/19 04:42 INR 1.02 02/05/19 04:42 APTT 56.8 Seconds (26.9-38.3) H 02/05/19 04:42
--- NOTE | 2019-02-07 13:46 | US ---
PROCEDURE: Bilateral carotid artery duplex ultrasound HISTORY: Carotid stenosis CVA PHYSICIAN(S): Nigel Rose MD. TECHNIQUE: Duplex sonography and color-flow Doppler were used to evaluate the carotid bifurcations and limited segments of the vertebral arteries bilaterally. FINDINGS: There is moderate focal irregular heterogeneous plaque noted at the carotid bifurcations bilaterally. The peak systolic velocity in the proximal right internal carotid artery is 71 cm/sec. This corresponds to a 20 to 39% proximal right ICA stenosis. Normal systolic velocities are noted in the proximal right external carotid artery. There is antegrade flow in the right vertebral artery. The peak systolic velocity in the proximal left internal carotid artery is 189 cm/sec. This corresponds to a 60-79 percent proximal left ICA stenosis. Mildly elevated systolic velocities are noted in the proximal left external carotid artery. There is antegrade flow in the left vertebral artery. IMPRESSION: 1. 60-79 percent proximal left ICA stenosis. 2. 20-39 percent proximal right ICA stenosis 3. Antegrade flow in both vertebral arteries
--- NOTE | 2019-02-07 15:45 | PN ---
DATE: 02/07/2019 NEUROLOGY FOLLOWUP CHIEF COMPLAINT: Right side weakness and right facial droop. SUBJECTIVE: The patient was seen and examined at bedside, still has a mild right facial droop and some slurred speech and right arm and leg weakness. Has slow finger tapping on the right compared to left from underlying CVA. The patient, on MRI, had a left pontine infarct 6 x 11 mm. He is currently on dual antiplatelet therapy and high dose statin. He had his hemoglobin A1c, it was 8.7 which is high with elevated LDL 162 and elevated triglycerides 216 and elevated total cholesterol level of 266. The patient will benefit from acute rehab and needs secondary because of diabetic, blood pressure and hypercholesterolemia control. Carotid Doppler results is currently pending, but shows some proximal left ICA stenosis 40% to 59%, but we are awaiting the result. PAST MEDICAL HISTORY: Diabetes. ALLERGIES: NO KNOWN DRUG ALLERGIES. SOCIAL HISTORY: No illicit drug use, smoking or EtOH abuse. REVIEW OF SYSTEMS: A 14-point review of systems negative except in the HPI. FAMILY HISTORY: Noncontributory. LABORATORY DATA: Sodium is 138, potassium 3.8, chloride 105, carbon dioxide 28, BUN of 17, creatinine 0.8, random glucose of 128. PHYSICAL EXAMINATION: VITAL SIGNS: Temperature 98.4, pulse rate 77, blood pressure of 134/76, respiratory rate 20, oxygen saturation 96%. GENERAL: The patient is seen up in bed, in no acute distress. HEENT: Atraumatic and normocephalic. PERRLA. Extraocular muscles intact. NECK: Supple. No JVD. No adenopathy noted. LUNGS: Clear to auscultation. No adventitious sounds. HEART: S1 and S2. Normal rate and rhythm. No murmurs, rubs, or gallops. ABDOMEN: Soft, nontender, and nondistended. Bowel sounds are present. EXTREMITIES: No clubbing. No cyanosis. Peripheral pulses are 2+ felt bilaterally. NEUROLOGIC: The patient is alert and oriented to person, place, and year. Speech is fluent without any errors. Cranial nerves II through XII are intact except for a right facial droop. Motor exam: Moves all extremities equally except for right arm 4/5 and right leg 4+/5 weakness from the CVA. Sensory Exam: Decreased light touch and pinprick up to the calves. Decrease vibration of the toes. DTRs are 2+ throughout and 1 at the ankles. Coordination; [id number] is intact and toes are upgoing but actually engaged for now. IMPRESSION: This is a 68-year-old man with history of diabetes who came in with right facial droop, slurred speech, and right side weakness, found to have an acute left pontine infarct small, measuring 6 x 11 mm which is secondary to diffuse atherosclerotic disease and uncontrolled blood pressure and diabetes. The patient had an hemoglobin A1c of 8.7 and triglycerides of 216 and total cholesterol level of 266 and LDL level of 162 indicating poorly controlled lipid profile. At this time will recommend: 1. Aspirin 81, Plavix 75, and Lipitor of 80 for stroke prevention. 2. Acute rehab for right-sided weakness from CVA. 3. Diabetic control advice, keep blood sugars between 140 to 180 and a low fat diet advised. 4. Will follow up as an outpatient. 5. Carotid Doppler results currently pending, needs to be followed up. Haseeb Sibley MD
[2019-02-07] MEDS: Insulin Detemir 100 units/ml Vial (Levemir) SC SCH (22:23)
[2019-02-08] MEDS: Insulin Reg-LOW-Coverage SC SCH ×4 (08:30→21:46)
--- NOTE | 2019-02-08 12:32 | PN ---
DATE: 02/08/2019 The patient is in [facility] in [place], room 265, bed 2. SUBJECTIVE: The patient was admitted with acute stroke. The patient is seen this morning. He is awake and alert. According to him, his physical therapy took him for a walk yesterday. His ambulation is pretty much returning to normal. His speech is somewhat slurred yet. He has arm strength which is good for 4/5 and leg strength is also 4/5. PHYSICAL EXAMINATION: VITAL SIGNS: Pulse 73, blood pressure 138/68, respirations 18, O2 saturation 96% on room air. HEENT: Head is normocephalic. There is no evidence of any abnormalities noted. NECK: Thyroid is enlarged. Carotid pulses are present. JVP is flat. There is no lymphadenopathy. His face, there is no facial deformity at this time. LUNGS: Trachea central. Breath sounds are vesicular. No adventitious sounds are heard. HEART: Normal sinus rhythm. S1 and S2 present. No murmurs. ABDOMEN: Soft. Liver and spleen not palpable. CENTRAL NERVOUS SYSTEM: The patient has minimal weakness of the right leg and right arm. Speech is somewhat slurred. All cranial nerves are intact from II through XII. The patient's sense of smell and touch is good. The patient's hearing is good. LABORATORY DATA: Evaluation of test. The patient had MRI. It shows evidence of lesion in the pontine area on the left side, which might be acute small infarct. The CAT scan of the head does not reveal any pathology. Chest x-ray is within normal range. Echocardiogram shows evidence of concentric hypertrophy of the left ventricle. No mitral valve and aortic valve deformities noted. The patient's carotid ultrasound shows evidence of 70% occlusion of the left internal carotid artery and the patient will have vascular evaluation. He also has a cardiac evaluation with Dr. Jett. The patient's blood work today, the hemoglobin is 12.2. The patient's white count is normal. The patient's chemistry, the blood sugar is 254, the patient is a diabetic and has been treated for diabetes with borderline insulin therapy. The patient's other parameters are within normal range. His BUN and creatinine is standard. The patient is very rational and participating with old problems. He is not a DNR. ASSESSMENT AND PLAN: We will continue the current management. He is on physical therapy now and speech therapy and we will follow with necessary followup tests prior to providing home care for him. His overall prognosis is guarded. Condition is improving but steady. Jas Roy MD
[2019-02-08] MEDS: Insulin Detemir 100 units/ml Vial (Levemir) SC SCH (21:50)
[2019-02-09] MEDS ORDERED: Insulin Detemir 100 units/ml Vial (Levemir) SC SCH (08:01)
[2019-02-09] MEDS: Insulin Reg-LOW-Coverage SC SCH ×4 (08:44→21:42)
--- NOTE | 2019-02-09 10:17 | CP.PCM.PCO ---
Physician Communication Note - Physician Communication Note Physician Communication Note: discuss pt with neuro, spoke to [facility] dept re: left carotid stenosis 60-79%.
--- NOTE | 2019-02-09 10:49 | PN ---
DATE: 02/09/2019 SUBJECTIVE: The patient is seen this morning. He was admitted with stroke involving the left-side of the hemisphere on brain stem, but the patient has weakness of the right side of the body, arm, and leg. The patient also has slurred speech. The patient is seen this morning. PHYSICAL EXAMINATION: VITAL SIGNS: The pulse is 75, blood pressure 147/75, respirations are 19 and O2 sat is 96% on room air. HEENT: The patient's head is normocephalic. NECK: Thyroid is not enlarged. JVP is flat. There is no facial weakness noted. The patient does have slurred speech. EXTREMITIES: The arm strength on both sides compared, the right side the arm strength is 4/5 and the leg strength is also 4/5. The patient has no evidence of gait abnormality. He is able to ambulate with the help of physical therapy, has been walking him for the last 2 days. The patient also gets speech therapy. LUNGS: Clear. HEART: Normal sinus rhythm. No murmurs. No cardiac arrhythmia. ABDOMEN: Soft. Liver and spleen not palpable. No tender. No masses. LABORATORY DATA: The patient's recent blood work; the last CBC, hemoglobin 12.9. The patient's chemistry; the blood sugar is slightly elevated to . The is on medications to control the diabetes, he is on insulin and oral hypoglycemic agents. The list of medication consists of hydralazine, losartan, aspirin, Plavix, amlodipine, and Lipitor. We will add metformin to his diabetic medication list. The patient is also was on Actos at home, we will stop the Actos too. The patient's condition is improving. Prognosis is guarded. The patient is evaluated by Dr. Ngiel Rose regarding the of the carotid artery disease, possible intervention and treatment. Jas Roy MD
[2019-02-09 12:33] VITALS: RESP 20
--- NOTE | 2019-02-09 13:39 | PN ---
DATE: 02/09/2019 NEUROLOGY FOLLOWUP CHIEF COMPLAINT: Follow up for right side weakness and right facial droop. SUBJECTIVE: The patient was seen and examined at bedside. He has a mild right facial droop and dysarthria and some right arm and leg weakness for which he will need acute rehab. He had carotid ultrasound Doppler done which shows left ICA stenosis of 60% to 79%. He is on dual-antibiotic therapy and on statin, we will continue with medical management for now and we will need an outpatient vascular consult to follow up. PAST MEDICAL HISTORY: Diabetes. ALLERGIES: NO KNOWN DRUG ALLERGIES. SOCIAL HISTORY: No illicit drug use, smoking or EtOH abuse. REVIEW OF SYSTEMS: A 14-point review of systems negative except in the HPI. FAMILY HISTORY: Noncontributory. LABORATORY DATA: Today's blood sugar is 213. PHYSICAL EXAMINATION: VITAL SIGNS: Temperature 97.9, pulse rate of 74, blood pressure of 115/76, respiratory rate 20, and oxygen saturation 96% on room air. GENERAL: The patient is seen up in bed and in no acute distress. HEENT: Atraumatic and normocephalic. PERRLA. Extraocular muscles intact. NECK: Supple. No JVD. No adenopathy noted. LUNGS: Clear to auscultation. No adventitious sounds. HEART: S1 and S2. Normal rate and rhythm. No murmurs, rubs, or gallops. ABDOMEN: Soft, nontender, and nondistended. Bowel sounds are present. EXTREMITIES: No clubbing. No cyanosis. Peripheral pulses are 2+ felt bilaterally. NEUROLOGIC: The patient is alert and oriented to person, place, and year. Speech is fluent without any errors. Cranial nerves II through XII are intact, except for a right facial droop. Motor exam; moves all extremities equally except for right arm 4/5 and right leg 4+/5. Weakness from the underlying CVA. Sensory exam; decreased light touch and pinprick up to the calves. Decrease vibration of the toes. DTRs are 2+ throughout and 1 at both knees and ankles. Coordination; [id number] is intact. No dysmetria noted. Gait is deferred for now. IMPRESSION: This is a 68-year-old man with history of diabetes who came in with right facial droop, slurred speech, and right-sided weakness, found to have an acute left pontine infarct small in nature measuring 6 x 11 mm which is secondary to diffuse atherosclerotic disease and uncontrolled hypertension and diabetes. The patient's hemoglobin A1c is 8.7 and elevated LDL and elevated total cholesterol, as well as triglycerides. He had a carotid ultrasound which showed 60% to 79% left proximal internal carotid artery stenosis which is underlying likely because of a stroke. RECOMMENDATIONS: At this time we recommend; 1. Dual antiplatelet therapy of 81 mg of aspirin, 75 mg of Plavix, Lipitor 80 mg for stroke prevention. 2. Outpatient vascular consult to follow his left ICA stenosis at 60% to 79%. 3. Diabetic control is advised. Keep blood sugars within 140 to 180 and low sugar diet is advised. 4. We will recommend acute rehab. Thank you for this follow up. Haseeb Sibley MD
--- NOTE | 2019-02-09 14:53 | PN ---
DATE: 02/09/2019 REASON FOR CONSULTATION AND FOLLOWUP: Cardiac evaluation, admitted with right upper extremity weakness, resolved. SUBJECTIVE: The patient denies any chest pain, shortness of breath or any palpitation. OBJECTIVE GENERAL: Not in apparent distress. VITAL SIGNS: Temperature afebrile, heart rate 74, blood pressure 147/75. HEENT: PERRLA. Extraocular muscles intact. NECK: Supple. No carotid bruits or thyromegaly. CHEST: Clear to auscultation. HEART: S1 and S2 regular. ABDOMEN: Soft. EXTREMITIES: Clubbing and cyanosis, negative. LABORATORY DATA: Blood workup: WBC 9.2, hemoglobin 12.2, hematocrit 36, platelet count 265. Chemistry shows sodium 130, potassium 3.8, chloride 105, carbon dioxide 28, anion gap of 8, BUN 8, creatinine 0.8. Troponin 0.02, negative. Brain MRI on 02/05/2019 showed area of infiltrated diffusion in the left becca consistent with acute pontine infarct. Bilateral carotid duplex 02/05/2019 revealed 20% to 39% proximal ICA stenosis, 60% to 79% left ICA stenosis. IMPRESSION: This is a 68-year-old male with past medical history significant for diabetes, hypertension, hyperlipidemia, osteoarthritis, admitted with right upper extremity weakness. MRI of the brain shows acute pontine infarct. Bilateral carotid artery duplex shows left 60% to 79% stenosis, right is 20% to 39% stenosis. RECOMMENDATION: Continue rehab. Continue aspirin. Continue statin. Continue losartan. Aggressive control of blood pressure. Continue Plavix as per Neurology. The patient underwent echocardiography that shows preserved LV function, ejection fraction 55%, [id number] mitral regurgitation, mild tricuspid regurgitation, RV systolic pressure 30. No clot noted. No PFO by bubble study noted. We will follow. As mentioned, carotid artery duplex left ICA has 60% to 79% stenosis, right is 20% to 39% stenosis. Possible left carotid artery intervention. We will follow with you. Further recommendation depending upon hospital course and management intervention. Thank you Dr. Roy for providing us the opportunity in taking care of your patient, Mary Armstrong. Zeinab Jett MD
[2019-02-10 06:07] VITALS: O2SAT 95
[2019-02-10] MEDS: Insulin Reg-LOW-Coverage SC SCH ×2 (07:52→13:22)
--- NOTE | 2019-02-10 09:34 | PN ---
DATE: 02/10/2019 SUBJECTIVE: The patient is in [facility] in [place]. The patient was admitted with the stroke. The patient had right hemiparesis and slurred speech. The patient is improving with treatment. PHYSICAL EXAMINATION: VITAL SIGNS: This morning, pulse is 67, blood pressure 145/75, respirations are 20 and O2 sat is 95% on room air. HEENT: The patient's head is normocephalic. NECK: Thyroid is not enlarged. JVP is flat. Carotid pulses are present. The patient has no facial nerve palsy noted. Slurred speech is present. NEUROLOGIC: Motor functions are recovering. The arm strength and neck strength is 4/5. The patient's ambulation is improving with physical therapy. HEART: Within normal limit. The echocardiogram shows evidence of LVH and no other valvular abnormalities. LUNGS: Trachea is central. Breath sounds are vesicular. No adventitious sounds. ABDOMEN: Soft. Liver and spleen not palpable. CENTRAL NERVOUS SYSTEM: As mentioned earlier. LABORATORY DATA: The patient's blood work done, the hemoglobin remains at 12.2. His chemistry is very reasonable, BUN and creatinine is within normal limits. The patient's lipid level will make lipid level tomorrow morning. MEDICATIONS: The patient is on Actos 30 mg p.o. daily, hydralazine 10 mg p.o. four times a day p.r.n. for systolic pressure of 116, losartan 100 mg daily. The patient is on aspirin 81 mg daily, Glucophage 1000 mg twice a day. The patient is also getting insulin coverage, Lipitor 80 mg daily, amlodipine 10 mg daily, Plavix 75 mg daily. The patient is on a heart healthy diet. As mentioned, we will repeat the lipid levels and continue current management and physical therapy. We will followup. Jas Roy MD
--- NOTE | 2019-02-10 14:45 | PN ---
DATE: 02/10/2019 REASON FOR CONSULTATION AND FOLLOWUP: Cardiac evaluation, admitted with right upper extremity weakness, improving. SUBJECTIVE: The patient denies any chest pain, shortness of breath or any palpitation. The patient is not in apparent distress. OBJECTIVE: As follows: VITAL SIGNS: Temperature afebrile, heart rate 60, blood pressure 127/67. HEENT: PERRLA. Extraocular muscles intact. NECK: Supple. No carotid bruits or thyromegaly. CHEST: Clear to auscultation. HEART: S1 and S2 regular. ABDOMEN: Soft. EXTREMITIES: Clubbing and cyanosis, negative. LABORATORY DATA: Blood workup as follows: WBC 9.9, hemoglobin 12.2, hematocrit 36, platelet count 265. Chemistry shows sodium 141, potassium 3, chloride 108, carbon dioxide 27, anion gap of 9, BUN 15, creatinine 0.6. Total cholesterol on admission 266, LDL 162, ADL 30, triglycerides 216 as of 02/06/2019. IMPRESSION: This is a 68-year-old male with past medical history significant for hypertension, hyperlipidemia, diabetes, osteoarthritis, admitted with right upper extremity weakness. MRI of the brain shows acute pontine infarct. Bilateral carotid artery duplex shows 60% to 79% stenosis in the left internal carotid artery and the right internal carotid artery is 20% to 39%. Being evaluated for possible carotid intervention. RECOMMENDATION: Continue Lipitor. Continue losartan. Continue aspirin. Continue Plavix. Being evaluated for carotid intervention. If there is no carotid intervention, we will discontinue telemetry and continue rehab. We will follow with you. Repeat the blood workup in the morning. Thank you Dr. Roy for providing us the opportunity in taking care of your patient, Mary Armstrogn. Zeinab Jett MD
[2019-02-10 17:22] VITALS: BP 137/74; PULSE 84; TEMP 98.3
== END 2019-02-10 18:00 | DRG 65 ==
LOC: ED 03:58 → ERH 05:43 → 2RNO 09:14
PROVIDERS: ADMIT Internal Medicine; ATTEND Internal Medicine
DX: I63.29 Cerebral infarction due to unspecified occlusion or stenosis of other precerebral arteries (principal); G81.91 Hemiplegia, unspecified affecting right dominant side; I47.2 Ventricular tachycardia; I10 Essential (primary) hypertension; E11.9 Type 2 diabetes mellitus without complications; R29.810 Facial weakness; R47.81 Slurred speech; R48.2 Apraxia; R47.1 Dysarthria and anarthria; R29.706 NIHSS score 6; M19.90 Unspecified osteoarthritis, unspecified site; E78.5 Hyperlipidemia, unspecified; E78.00 Pure hypercholesterolemia, unspecified; Z85.828 Personal history of other malignant neoplasm of skin; Z79.4 Long term (current) use of insulin

== ENCOUNTER 2019-02-18 15:53 | Inpatient (IN) | payer MEDICARE ==
--- NOTE | 2019-02-18 16:02 | ED PDOC ---
Arrival/HPI - General Chief Complaint: Weakness/Neurological Deficit Time Seen by Provider: 02/18/19 15:59 Historian: Patient - History of Present Illness Narrative History of Present Illness (Text): 02/18/19 16:08 69 year old male, with past medical history of diabetes (compliant with medications), who presents to the emergency department BIB EMS for right sided arm and leg weakness from nursing. Patient endorses right sided weakness that began at 12:30pm today. Patient denies any headache, no chest pain, no dyspnea. Patient was just admitted to the hospital for stroke/infarct. Hx provided by patient and Dr. Jason who came to the ED for acute presentation. Symptom Onset: Gradual Symptom Course: Unchanged Activities at Onset: Light Context: Home Past Medical History - Provider Review Nursing Documentation Reviewed: Yes - Infectious Disease Hx of Infectious Diseases: None - Cardiac Hx Hypertension: Yes - Pulmonary Hx Respiratory Disorders: No - Neurological Hx Neurological Disorder: Yes Other/Comment: started saturday02/03/19 c/o weakness, slurred speech, r facial darcy op, r arm and r leg weakness, fell in bathroom due to right side weakness - HEENT Hx HEENT Disorder: Yes (bifocals) Hx Cataracts: Yes (r eye cataract dx 06/2018 no sx yet) - Renal Hx Renal Disorder: No - Endocrine/Metabolic Hx Diabetes Mellitus Type 2: Yes - Hematological/Oncological Hx Blood Disorders: Yes Hx Cancer: Yes (skin ca basal cell removed from nose) - Integumentary Hx Dermatological Disorder: No - Musculoskeletal/Rheumatological Hx Arthritis: Yes - Gastrointestinal Hx Gastrointestinal Disorders: No - Genitourinary/Gynecological Hx Genitourinary Disorders: No - Psychiatric Hx Substance Use: No - Surgical History Other/Comment: lt hand sx to correct curling of 5th finger left hand about 3 yrs ago - Anesthesia Hx Anesthesia: Yes Hx Anesthesia Reactions: No Hx Malignant Hyperthermia: No Family/Social History - Physician Review Nursing Documentation Reviewed: Yes Family/Social History: Unknown Family HX Smoking Status: Never Smoked Hx Alcohol Use: Yes (years ago none now) Hx Substance Use: No Allergies/Home Meds Allergies/Adverse Reactions: Allergies No Known Allergies Allergy (Verified 02/18/19 16:03) Home Medications: Home Meds Medication Instructions Recorded Confirmed Insulin Detemir [Levemir] 45 unit SC HS 02/05/19 02/05/19 Irbesartan [Avapro] 300 mg PO DAILY 02/05/19 02/05/19 MetFORMIN [glucoPHAGE] 1,000 mg PO BID 02/05/19 02/05/19 Pioglitazone [Actos] 30 mg PO DAILY 02/05/19 02/05/19 amLODIPine [Norvasc] 10 mg PO DAILY 02/05/19 02/05/19 Review of Systems - Physician Review All systems were reviewed & negative as marked: Yes Physical Exam - Physical Exam Narrative Physical Exam (Text): 02/18/19 16:07 Gen: VS reviewed, alert, well developed, well nourished, nontoxic, mild distress Eye: EOMI, PERRL Neck: no JVD, supple, no adenopathy CV: regular rate, regular rhythm, no rubs,no murmur, S1, S2 Pulm: no distress, clear to auscultation, no wheeze, no rhonchi, breath sounds equal, no rales Abd: soft, nontender, no guarding, no rebound, no rigidity Ext: no edema Skin: good color, no rash, no cyanosis Psych: responds appropriately to questions, normal affect Neuro: positive drift in the right arm and right leg, positive droop in the corner of right mouth, speech is clear but very slightly slurred Medical Decision Making ED Course and Treatment: 02/18/19 16:02 Impression: 69 year old male presents to the emergency department BIB EMS as code stroke. Plan: -- CT head -- Labs -- Chest X-ray -- EKG -- Iv fluids -- Reassess and disposition Prior Visits: Notes and results from previous visits were reviewed. Progress Notes: 02/18/19 16:[address] huffman, neurology air intercept controller supervisor, states that the patient is not a candidate for thrombolysis as the patient had a cva within 3 months. recommends consult to dr. rice. 02/18/19 17:12 case d/w dr. rice, neurology, will see pt in consult admit accepted by dr. jason to his service patient to be admitted for tia with right sided arm and leg weakness. 02/18/19 18:39 - RAD Interpretation Narrative RAD Interpretations (Text): 02/18/19 18:23 Chest X-ray reviewed by radiologist, shows: No active disease. No significant interval change compared to the prior examination(s). Head CT reviewed by radiologist, shows: No acute intracranial abnormalities. Redemonstration of area of low attenuation in the brainstem on the left consistent with previously identified pontine infarct. No significant interval change compared to the prior examination(s). Automatic Edger: Radiologist NIHSS Scale ([place]) Time Performed: 16:00 - How Severe is the Stoke Baseline Level of Consciousness: 0=Alert LOC to Questions: 0=Both comments correct LOC to commands: 0=Obeys both correctly Best Gaze: 0=Normal Visual: 0=No visual loss Facial: 1=Minor asymmetry Motor Arm - Left: 0=No drift Motor Arm - Right: 1=Drift noted before 10 sec Motor Leg - Left: 0=No drift Motor Leg - Right: 1=Drift before 5 sec Limb Ataxia: 2=Present both Sensory: 1=Mild to moderate loss Best Language: 0=No aphasia Dysarthia: 1=Mild to moderate slurring Extinction & Inattention (Neglect): 0=Normal, no object Score: 7 Risk Level: Mod Stroke Risk rTPA Inclusion/Exclusion - Refusal of Treatment Patient Refused Treatment: No - Inclusion Criteria for Altepase Patient is 18 years or Older: Yes The Clinical Diagnosis of Ischemic Stroke That is Causing a Potentially Disabling Neurological Deficit: Yes Time of Onset is Well Established to be Less Than 270 Minute Before Treatment Would Begin: Yes Risk/Benefit Discussed With Patient/Family Member Present: Yes - Warning to TPA With Conditions Additional Condition (For 3-4.5 Hour Window): Prior Stroke and Diabetes (recent infarct within 3 months) - Scribe Statement The provider has reviewed the documentation as recorded by the Merlyn Botello Provider Scribe Attestation: All medical record entries made by the Merlyn were at my direction and personally dictated by me. I have reviewed the chart and agree that the record accurately reflects my personal performance of the history, physical exam, medical decision making, and the department course for this patient. I have also personally directed, reviewed, and agree with the discharge instructions and disposition. Disposition/Present on Arrival - Present on Arrival Any Indicators Present on Arrival: No History of DVT/PE: No History of Uncontrolled Diabetes: No Urinary Catheter: No History Surgical Site Infection Following: None - Disposition Have Diagnosis and Disposition been Completed?: Yes Diagnosis: TIA (transient ischemic attack) Disposition: HOSPITALIZED Disposition Time: 16:23 Patient Plan: Admission, Observation Patient Problems: Current Active Problems Problem Status Onset TIA (transient ischemic attack) Acute Condition: GUARDED
--- NOTE | 2019-02-18 16:03 | ED PDOC ---
Arrival/HPI - General Chief Complaint: Weakness/Neurological Deficit Time Seen by Provider: 02/18/19 15:59 Past Medical History - Infectious Disease Hx of Infectious Diseases: None - Cardiac Hx Hypertension: Yes - Pulmonary Hx Respiratory Disorders: No - Neurological Hx Neurological Disorder: Yes Other/Comment: started saturday02/03/19 c/o weakness, slurred speech, r facial droop, r arm and r leg weakness, fell in bathroom due to right side weakness - HEENT Hx HEENT Disorder: Yes (bifocals) Hx Cataracts: Yes (r eye cataract dx 06/2018 no sx yet) - Renal Hx Renal Disorder: No - Endocrine/Metabolic Hx Diabetes Mellitus Type 2: Yes - Hematological/Oncological Hx Blood Disorders: Yes Hx Cancer: Yes (skin ca basal cell removed from nose) - Integumentary Hx Dermatological Disorder: No - Musculoskeletal/Rheumatological Hx Arthritis: Yes - Gastrointestinal Hx Gastrointestinal Disorders: No - Genitourinary/Gynecological Hx Genitourinary Disorders: No - Psychiatric Hx Substance Use: No - Surgical History Other/Comment: lt hand sx to correct curling of 5th finger left hand about 3 yrs ago - Anesthesia Hx Anesthesia: Yes Hx Anesthesia Reactions: No Hx Malignant Hyperthermia: No Family/Social History Smoking Status: Never Smoked Hx Alcohol Use: Yes (years ago none now) Hx Substance Use: No Allergies/Home Meds Allergies/Adverse Reactions: Allergies No Known Allergies Allergy (Verified 02/05/19 04:06) Home Medications: Home Meds Medication Instructions Recorded Confirmed Insulin Detemir [Levemir] 45 unit SC HS 02/05/19 02/05/19 Irbesartan [Avapro] 300 mg PO DAILY 02/05/19 02/05/19 MetFORMIN [glucoPHAGE] 1,000 mg PO BID 02/05/19 02/05/19 Pioglitazone [Actos] 30 mg PO DAILY 02/05/19 02/05/19 amLODIPine [Norvasc] 10 mg PO DAILY 02/05/19 02/05/19 Medical Decision Making ED Course and Treatment: 02/18/19 16:02 Impression: 69 year old male presents to the emergency department BIB EMS as code stroke. Differential Diagnosis included but are not limited to: Plan: -- Reassess and disposition Prior Visits: Notes and results from previous visits were reviewed. Patient was last seen in the emergency department on Progress Notes: NIHSS Stroke Scale 3 - Date/Time Evaluation Performed Time Performed: 16:00 When Was NIHSS Performed: Code Stroke - Scribe Statement The provider has reviewed the documentation as recorded by the Merlyn Botello Provider Farhanibfrances Attestation: All medical record entries made by the Scribe were at my direction and personally dictated by me. I have reviewed the chart and agree that the record accurately reflects my personal performance of the history, physical exam, medical decision making, and the department course for this patient. I have also personally directed, reviewed, and agree with the discharge instructions and disposition. Disposition/Present on Arrival - Present on Arrival History of DVT/PE: No History of Uncontrolled Diabetes: No Urinary Catheter: No History Surgical Site Infection Following: None - Disposition Forms: in3Dgallery ([place])
[2019-02-18 16:12] LABS: BASO # 0.04 K/mm3 (0.0-2.0); BASO % 0.3 % (0.0-3.0); EOS % 0.3 % (1.5-5.0); LYMPH # 3.3 (1.2-3.4); LYMPH % 28.9 % (22.0-35.0); MEAN CELL VOLUME 86.2 fl (80.0-105.0); MEAN CORPUSCULAR HEMOGLOBIN 29.5 pg (25.0-35.0); MEAN CORPUSCULAR HGB CONC 34.2 g/dl (31.0-37.0); MEAN PLATELET VOLUME 9.9 fl (7.0-11.0); MONO # 0.5 (0.1-0.6); MONO % 4.4 % (1.0-6.0); RBC 4.41 10^6/uL (3.5-6.1); RED CELL DISTRIBUTION WIDTH 13.4 % (11.5-14.5); WHITE BLOOD COUNT 11.5 10^3/uL (4.5-11.0)
[2019-02-18 16:19] LABS: INR 1.2; PARTIAL THROMBOPLASTIN TIME 53.4 Seconds (26.9-38.3); PROTHROMBIN TIME 13.3 SECONDS (9.4-12.5)
[2019-02-18] MEDS: Sodium Chloride 0.9% 1,000 ML IV SCH (16:21)
[2019-02-18 16:22] LABS: ALB/GLOB RATIO 1.4 (1.1-1.8); ALBUMIN 3.9 g/dL (3.0-4.8); ALT/SGPT 27 U/L (7-56); AST/SGOT 18 U/L (17-59); BLOOD UREA NITROGEN 18 mg/dL (7-21); CALCIUM 9.5 mg/dL (8.4-10.5); GFR NON-AFRICAN AMERICAN > 60; HDL CHOLESTEROL 35 mg/dL (29-60)
[2019-02-18 16:30] LABS: LDL CHOLESTEROL 114 mg/dL (0-129)
[2019-02-18 16:33] LABS: TROPONIN I < 0.01 ng/mL
--- NOTE | 2019-02-18 16:37 | CT ---
Date of service: 02/18/2019 PROCEDURE: CT HEAD WITHOUT CONTRAST. HISTORY: code stroke COMPARISON: 02/05/2019 CT head. 02/05/2019 MRI brain. Summary of findings on the comparison examination: There is an area of restricted diffusion in the left side of the becca measuring 6 x 11 mm consistent with an acute pontine infarct. TECHNIQUE: Axial computed tomography images were obtained through the head/brain without intravenous contrast. Supplemental Coronal and Sagittal projections created and reviewed. Radiation dose: Total exam DLP = 870.97 mGy-cm. This CT exam was performed using one or more of the following dose reduction techniques: Automated exposure control, adjustment of the mA and/or kV according to patient size, and/or use of iterative reconstruction technique. FINDINGS: HEMORRHAGE: No intracranial hemorrhage. BRAIN: No mass effect or edema. Redemonstration of area of low-attenuation in the left becca only seen on prior MRI consistent with previously identified infarct. Please refer to axial series 4/image 15. VENTRICLES: Unremarkable. No hydrocephalus. CALVARIUM: Unremarkable. PARANASAL SINUSES: Unremarkable as visualized. No significant inflammatory changes. MASTOID AIR CELLS: Unremarkable as visualized. No inflammatory changes. OTHER FINDINGS: None. IMPRESSION: No acute intracranial abnormalities. Redemonstration of area of low attenuation in the brainstem on the left consistent with previously identified pontine infarct. Additional benign and/or incidental findings described above. No significant interval change compared to the prior examination(s). Code stroke protocol: Study completed 16:05. Radiologist notified 16:10. Results conveyed verbally at 16:26. I discussed findings directly with Dr. Avery who indicated the patient had right-sided symptoms.
--- NOTE | 2019-02-18 16:46 | RAD ---
Date of service: 02/18/2019 HISTORY: Code Stroke COMPARISON: 02/05/2019. FINDINGS: LUNGS: No active pulmonary disease. PLEURA: No significant pleural effusion identified, no pneumothorax apparent. CARDIOVASCULAR: No atherosclerotic calcification present No radiographic findings to suggest acute or significant cardiovascular disease. OSSEOUS STRUCTURES: No significant abnormalities. VISUALIZED UPPER ABDOMEN: Normal. OTHER FINDINGS: None. IMPRESSION: No active disease. No significant interval change compared to the prior examination(s).
--- NOTE | 2019-02-18 19:30 | CARD ---
APPROVED REPORT Date of service: 02/18/2019 EKG Measurement Heart [id number] <Conclusion> Normal sinus rhythm Normal ECG
[2019-02-18] MEDS: Insulin Reg-LOW-Coverage SC SCH (22:52)
[2019-02-18] MEDS: Insulin Detemir 100 units/ml Vial (Levemir) SC SCH (22:54)
--- NOTE | 2019-02-18 23:21 | CON ---
DATE: 02/18/2019 HISTORY OF PRESENT ILLNESS: This is a 69-year-old male with past medical history of diabetes, who has recently been discharged from the hospital with a stroke two weeks ago, now came here with increasing right-sided weakness, right upper extremity and right leg weakness. Family is at the bedside and called to evaluate the patient. CAT scan of the head was done, which did not show any new stroke. PAST MEDICAL HISTORY: As above. The patient also had slurred speech and right facial droop. The patient fell in the bathroom due to right-sided weakness. ALLERGIES: NO KNOW DRUG ALLERGIES. HOME MEDICATIONS: Levemir, metformin, Actos, and Norvasc. REVIEW OF SYSTEMS: Ten-point review of systems was negative. PHYSICAL EXAMINATION: HEENT: Normocephalic and atraumatic. NECK: Supple. NEUROLOGIC: Awake, alert, and orientated to self and place. Cranial nerves II through XII were tested. Pupils reactive. EOMs intact. Visual field full. Mild right facial asymmetry. Motor examination, positive drift for right upper extremity and right lower extremity. Sightly slurred speech. Cerebellar gait deferred. IMPRESSION AND PLAN: A 69-year-old presented to the emergency room, possibly new stroke . CAT scan of the head was done, which was negative. We have ordered MRI of the head with and without . The patient was not a tPA candidate because of stroke within three months. Continue present management. Workup in progress. We will follow up. Wilber Sibley MD
--- NOTE | 2019-02-18 23:44 | HP ---
DATE OF EXAM: 02/18/2019 HISTORY OF PRESENT ILLNESS: The patient is seen in the emergency room [facility] in [place]. The patient was transferred from [facility] where he was seen for rehabilitation for right hemiparesis and cerebrovascular events. The patient has a past history of hypertension, diabetes, and the patient has carotid artery disease, left carotid artery. The patient has had stroke recently as mentioned. The patient has infarct in the becca on the left side. The patient's cerebral cortex does not show any evidence of any lesions. The patient is evaluated and admitted to the hospital for further management because he has progressive symptoms of weakness of the arm and leg on the right side because of facial palsy that is more prominent and speech disorder and slurring of speech. PHYSICAL EXAMINATION: VITAL SIGNS: The patient's pulse is 77, blood pressure of 144/70, respirations of 20, O2 sat 98% on room air, and the patient's temperature is 98.8. HEENT: The patient's head is normocephalic. On examination, no evidence of any injuries. NECK: The thyroid is not enlarged. Carotid pulses are present. LUNGS: Trachea is central. Breath sounds are vesicular. There are no adventitious sounds. HEART: Normal sinus rhythm. S1 and S2 present. No murmurs. ABDOMEN: Soft. Liver and spleen not palpable. CENTRAL NERVOUS SYSTEM: The patient has evidence of right hemiparesis with right facial palsy. The patient's CAT scan done in the emergency room does not reveal any acute pathology. The patient had a neurological evaluation by Dr. Sibley, the neurologist. The patient will be admitted to Telemetry and will be kept under close observation. MEDICATIONS: His list of medications consist of amlodipine 10 mg daily, Actos 30 mg daily, metformin 1000 mg b.i.d., Avapro 300 mg daily, insulin coverage for diabetes, Plavix 75 mg daily, Lipitor 80 mg daily, aspirin 81 mg daily, and acetaminophen 650 mg p.o. headache. The patient's CAT scan report, no acute lesions are noted in the cerebral hemisphere. The patient's brainstem cannot be visualized. The patient will have MRI repeated in the morning tomorrow and we listed the patient's medications and we will follow the patient closely and the patient's condition is clinically stable at this point, but overall prognosis is guarded. Jas Roy MD [facility]
[2019-02-19 01:15] VITALS: BMI 28.4
[2019-02-19 06:38] LABS: BASO # 0.04 K/mm3 (0.0-2.0); BASO % 0.5 % (0.0-3.0); EOS # 0.1 (0.0-0.7); EOS % 1.1 % (1.5-5.0); HEMOGLOBIN 11.8 g/dL (14.0-18.0); LYMPH # 2.9 (1.2-3.4); LYMPH % 37.1 % (22.0-35.0); MEAN CELL VOLUME 86.9 fl (80.0-105.0); MEAN CORPUSCULAR HEMOGLOBIN 29.1 pg (25.0-35.0); MEAN CORPUSCULAR HGB CONC 33.5 g/dl (31.0-37.0); MONO # 0.4 (0.1-0.6); MONO % 5.1 % (1.0-6.0); RBC 4.05 10^6/uL (3.5-6.1); RED CELL DISTRIBUTION WIDTH 13.4 % (11.5-14.5); WHITE BLOOD COUNT 7.9 10^3/uL (4.5-11.0)
[2019-02-19 07:09] LABS: BLOOD UREA NITROGEN 15 mg/dL (7-21); CALCIUM 8.8 mg/dL (8.4-10.5); GFR NON-AFRICAN AMERICAN > 60
[2019-02-19] MEDS ORDERED: Gadodiamide 287 MG/ML VIAL (20ML) IV ONE (08:43)
--- NOTE | 2019-02-19 09:43 | PN ---
DATE: 02/19/2019 SUBJECTIVE: The patient is in [facility] in [place] in room 263, bed 2. The patient was admitted yesterday, transferred from [facility] where he was in for rehabilitation. He has had a stroke with right hemiparesis. The patient has history of diabetes and hypertension. Seen this morning. He is awake and alert. He is able to converse. The patient's weakness on the right side seemed to be minimally improved. PHYSICAL EXAMINATION: VITAL SIGNS: Pulse is 81, respirations are 20, blood pressure is 136/72, O2 sat is 98% on room air. HEENT: The patient's head is normocephalic. NECK: Thyroid is not enlarged. JVP is flat. HEART: Normal sinus rhythm. S1 and S2 present. No murmurs. LUNGS: Trachea is central. Breath sounds are vesicular. No adventitious sounds. ABDOMEN: Soft. Liver and spleen not palpable. CENTRAL NERVOUS SYSTEM: The patient has evidence of right hemiparesis involving the right leg and the right arm. The patient does have facial palsy with upper motor neuron features. LABORATORY DATA: The patient's lab work in the hospital; his hemoglobin is 11.8, and white count is normal. The patient's chemistry; glucose was 134, BUN and creatinine within normal range. The patient's cholesterol was 197 yesterday. HDL is 35. LDL is 114. The patient's hemoglobin A1c was 8.6. LIST OF MEDICATIONS: Consist of Actos 30 mg daily. The patient is on losartan 100 mg daily, metformin/Glucophage which is 1000 mg twice a day, insulin coverage with meals. The patient gets Lipitor 80 mg daily, amlodipine 10 mg daily, Plavix 75 mg daily. Aspirin is increased to 325 mg instead of low dose 81 mg. The patient had CAT scan yesterday that does not reveal any difference from the previous CAT scan. The patient is waiting MRI of the brain. Neurology has seen the patient and evaluated the patient. The patient will be kept for further testing. After the MRI, we will make evaluation of the patient. His diet is heart-healthy diet, diabetic. Jas Roy MD [facility]
[2019-02-19] MEDS ORDERED: IRBESARTAN 300 MG PO SCH (10:00)
[2019-02-19] MEDS: Aspirin 325 mg EC Tablets PO SCH (10:47)
[2019-02-19] MEDS: Insulin Reg-LOW-Coverage SC SCH ×4 (10:48→21:22)
--- NOTE | 2019-02-19 10:48 | MRI ---
Date of service: 02/19/2019 PROCEDURE: MRI BRAIN WITH AND WITHOUT CONTRAST HISTORY: spot welder line COMPARISON: MRI 02/05/2019 TECHNIQUE: Multiplanar, multisequence MR images of the brain were obtained with and without intravenous contrast enhancement. 20 cc of Omniscan FINDINGS: HEMORRHAGE: None DWI: There is a pontine infarct to the left of midline measuring 8 x 19 mm. This was seen in the acute phase on 02/05/2019. The infarct is slightly larger. The infarct is less intense in signal intensity consistent with a subacute phase BRAIN PARENCHYMA: No mass,mass effect or edema. No atrophy or chronic microvascular ischemic changes. ENHANCEMENT: No abnormal intracranial enhancement. VENTRICLES: Unremarkable. No hydrocephalus. CRANIUM: Unremarkable. ORBITS: Grossly unremarkable. PARANASAL SINUSES/MASTOIDS: Clear VASCULAR SYSTEM: Skull base flow voids intact. OTHER FINDINGS: None . IMPRESSION: There is a pontine infarct to the left of midline measuring 8 x 19 mm. This was seen in the acute phase on 02/05/2019. The infarct is slightly larger. The infarct is less intense in signal intensity consistent with a subacute phase
--- NOTE | 2019-02-19 10:49 | MRI ---
Date of service: 02/19/2019 PROCEDURE: Magnetic Resonance Angiography Brain HISTORY: cva COMPARISON: None available. TECHNIQUE: 3D time of flight MR angiography of the intracranial arteries was performed. Rotating maximum intensity projection images were generated. FINDINGS: INTERNAL CAROTID ARTERIES: Unremarkable. The skull base, petrous, cavernous and supraclinoid segments are bilaterally widely patient. ANTERIOR CEREBRAL ARTERIES: Unremarkable. A1 and A2 segments are widely patent. Smaller distal branches unremarkable, as visualized. MIDDLE CEREBRAL ARTERIES: There is an irregular contour of the left M1 segment. This could be secondary to atherosclerotic disease or vasculitis. There is no significant stenosis POSTERIOR CIRCULATION: Basilar Artery: Unremarkable. Distal Vertebral Arteries: Unremarkable. Posterior Cerebral Arteries: Unremarkable. Posterior Inferior Cerebellar Arteries: Unremarkable. ANEURYSM/ VASCULAR MALFORMATIONS: None. OTHER FINDINGS: None. IMPRESSION: There is an irregular contour of the left M1 segment. This could be secondary to atherosclerotic disease or vasculitis. There is no significant stenosis
--- NOTE | 2019-02-19 11:40 | CP.PCM.APN ---
Subjective - Date & Time of Evaluation Date of Evaluation: 02/19/19 Time of Evaluation: 09:45 - Subjective Subjective: pt seen and examined in bed, pt reports feeling better with some resolution of symptoms to his right arm. pt states he is ablew to move the right arm and leg better than yesterday pt in NAD discussed with pt that results are on head mri and mra Review of Systems - Constitutional Constitutional: As Per HPI - Musculoskeletal Musculoskeletal: As Per HPI, Muscle Weakness (right upper ext ) Objective - Vital Signs/Intake and Output Vital Signs (last 24 hours): Temp Pulse Resp BP Pulse Ox 98.4 F 81 20 136/72 98 02/19/19 05:29 02/19/19 06:00 02/19/19 05:29 02/19/19 10:49 02/19/19 05:29 Intake and Output: 02/19/19 02/19/19 06:59 18:59 Intake Total 700 Balance 700 - Medications Medications: Current Medications Amlodipine Besylate (Norvasc) 10 mg PO DAILY [facility] Last Admin: 02/19/19 10:49 Dose: 10 mg Aspirin (Ecotrin) 325 mg PO DAILY [facility] Last Admin: 02/19/19 10:47 Dose: 325 mg Atorvastatin Calcium (Lipitor) 80 mg PO DIN SOFIA Clopidogrel Bisulfate (Plavix) 75 mg PO DAILY [facility] Last Admin: 02/19/19 10:50 Dose: 75 mg Sodium Chloride (Sodium Chloride 0.9%) 1,000 mls @ 100 mls/hr IV .Q10H [facility] Last Admin: 02/18/19 16:21 Dose: 100 mls/hr Insulin Detemir (Levemir) 25 unit SC HS [facility] Last Admin: 02/18/19 22:54 Dose: 25 units Insulin Human Regular (Humulin R Low) 0 units SC ACHS [facility]; Protocol Last Admin: 02/19/19 10:48 Dose: Not Given Losartan Potassium (Cozaar) 100 mg PO DAILY [facility] Last Admin: 02/19/19 10:46 Dose: 100 mg Metformin HCl (Glucophage) 1,000 mg PO BID [facility] Last Admin: 02/19/19 10:48 Dose: 1,000 mg Pioglitazone HCl (Actos) 30 mg PO DAILY [facility] Last Admin: 02/19/19 10:46 Dose: 30 mg - Labs Labs: 02/19/19 06:10 02/19/19 06:10 PT 13.3 SECONDS (9.4-12.5) H 02/18/19 16:07 INR 1.20 02/18/19 16:07 APTT 53.4 Seconds (26.9-38.3) H 02/18/19 16:07 - Constitutional Appears: Non-toxic, No Acute Distress - Eye Exam Pupil Exam: NORMAL ACCOMODATION - ENT Exam ENT Exam: Mucous Membranes Moist - Neck Exam Neck Exam: Full ROM - Respiratory Exam Respiratory Exam: NORMAL BREATHING PATTERN - Cardiovascular Exam Cardiovascular Exam: +S1, +S2 - GI/Abdominal Exam GI & Abdominal Exam: Soft, Normal Bowel Sounds - Neurological Exam Neurological Exam: Alert, Awake, Oriented x3 Additional comments: moves all ext, right side weaker than left to upper and LE - Psychiatric Exam Psychiatric exam: Normal Mood Assessment and Plan - Assessment and Plan (Free Text) Plan: ITS Impressions Head CT 02/18/19 16:01 IMPRESSION: No acute intracranial abnormalities. Redemonstration of area of low attenuation in the brainstem on the left consistent with previously identified pontine infarct. Additional benign and/or incidental findings described above. No significant interval change compared to the prior examination(s). Chest X-Ray 02/18/19 16:02 IMPRESSION: No active disease. No significant interval change compared to the prior examination(s). Brain MRI 02/19/19 08:20 IMPRESSION: There is a pontine infarct to the left of midline measuring 8 x 19 mm. This was seen in the acute phase on 02/05/2019. The infarct is slightly larger. The infarct is less intense in signal intensity consistent with a subacute phase Head MRA 02/19/19 08:20 IMPRESSION: There is an irregular contour of the left M1 segment. This could be secondary to atherosclerotic disease or vasculitis. There is no significant stenosis a/p 69 yr old white male with pmh sif for recent cva with right side weakness who w as transferred to [facility] on 02/10 who now presents with worsening right side weakness. pt was sent for further evalaution. pt with undergoing neuro workup and eval with MRi showing : There is a pontine infarct to the left of midline measuring 8 x 19 mm. This was seen in the acute phase on 02/05/2019. The infarct is slightly larger. The infarct is less intense in signal intensity consistent with a subacute phase. pt on asa, plavix, statin regimen, will discuss plan of care with pmd and neuro their recommendations. pt discussed with IDT in rounds will continue to follow BPCI/TIC - BPCIA/TIC Educated pt/family on BPCIA/CIR/Med to Bed Programs: N/A Flyers given, including [facility] Beneficiary letter: N/A Pt/family verbalized understanding & agreed to program: N/A
[2019-02-19] MEDS: Sodium Chloride 0.9% 1,000 ML IV SCH (14:10)
[2019-02-19] MEDS: Insulin Detemir 100 units/ml Vial (Levemir) SC SCH (21:33)
[2019-02-20] MEDS: Sodium Chloride 0.9% 1,000 ML IV SCH (05:58)
[2019-02-20 05:59] VITALS: O2SAT 98
--- NOTE | 2019-02-20 09:48 | CP.PCM.PCO ---
Assessment & Plan - Assessment and Plan (Free Text) Assessment: NEURO COMMUNICATION NOTE: MRI BRAIN REVIEWED SHOWS SLIGHTLY LARGER LEFT PONTINE INFARCT WHICH MEANS THE INFARCTION HAS NO FULLY COMPLETED. PT HAS UNCONTROLLED DIABETES AND HYPERLIPIDEMIA. C/W ASA 81 AND PLAVIX 75 MG AND LIPITOR 80 MG PO DAILY. PT EVALUATION. OUTPT F/U. THANKS KIRK JAY.
--- NOTE | 2019-02-20 09:54 | PN ---
DATE: 02/20/2019 SUBJECTIVE: The patient is in [facility] in [place], in room 263, bed 2, a 69-year-old white male. The patient was admitted with progressive symptoms of right hemiparesis and slurred speech. The patient has had a stroke about two weeks prior to this. The patient was in [facility] for rehabilitation. However, the patient was readmitted to [facility] for further evaluation. PHYSICAL EXAMINATION: VITAL SIGNS: Today, the patient's pulse is 74, blood pressure 165/60, respirations are 18, O2 sat is 98%. There is evidence of right hemiparesis. The patient had slurred speech, weakness of right hand. HEART: Normal sinus rhythm. LUNGS: Clear. ABDOMEN: Soft. Liver and spleen not palpable. CENTRAL NERVOUS SYSTEM: As mentioned, the patient has definite right hemiparesis with diagnosis of infarct in the pontine area of the brain. LABORATORY DATA: The patient had an MRA of the brain that shows evidence of lesion or a kink in the circulation of the middle cerebral artery. The patient does not have any other significant vascular abnormalities noted. ASSESSMENT AND PLAN: The patient is getting evaluated for physical therapy and medications. The patient is on Actos 30 mg daily, losartan 100 mg daily, aspirin 325 mg daily, metformin 1000 mg b.i.d., insulin coverage for diabetes, Lipitor 80 mg daily, amlodipine 10 mg daily, Plavix 75 mg daily, and the patient is on IV fluids. At this time, the patient is improving. We will continue current management, wait for evaluation confirmation, and treatment plan neurologically. Jas Roy MD [facility]
[2019-02-20] MEDS: Insulin Reg-LOW-Coverage SC SCH ×3 (10:42→17:48)
[2019-02-20] MEDS: Aspirin 325 mg EC Tablets PO SCH (10:57)
[2019-02-20 12:55] VITALS: RESP 20
[2019-02-20 17:14] VITALS: BP 159/74; PULSE 82; TEMP 98
== END 2019-02-20 19:53 | DRG 65 ==
LOC: ED 15:53 → ERH 17:11 → 2RNO 20:45 → OBSVTOIN 02-19 08:04
PROVIDERS: ADMIT Internal Medicine; ATTEND Internal Medicine
DX: I63.9 Cerebral infarction, unspecified (principal); I69.351 Hemiplegia and hemiparesis following cerebral infarction affecting right dominant side; I10 Essential (primary) hypertension; R47.81 Slurred speech; G51.0 Bell's palsy; R29.707 NIHSS score 7; E11.65 Type 2 diabetes mellitus with hyperglycemia; E78.5 Hyperlipidemia, unspecified; Z79.4 Long term (current) use of insulin; Z79.82 Long term (current) use of aspirin; Z85.828 Personal history of other malignant neoplasm of skin